=== PATIENT | female | born 1970 | race Caucasian/White ===

== ENCOUNTER → 2023-01-01 10:25 | Outpatient (CLI) | payer OTHER, SELFPAY ==
--- NOTE | ~2023-01-01 | MM_ITS ---
EXAMINATION: MM screening madeline BI w samy HISTORY: Screening mammogram TECHNIQUE: Craniocaudal and mediolateral oblique 3-D tomosynthesis images were obtained and synthetic 2-D images were generated. CAD analysis was submitted and interpreted. COMPARISON: 07/10/2019, 05/28/2018, 05/23/2017 bilateral screening mammogram examinations BREAST PARENCHYMAL COMPOSITION: There are scattered areas of fibroglandular density. FINDINGS: There is no evidence of suspicious mass, calcification, or architectural distortion to sugg est malignancy in either breast. There has been no suspicious interval change. IMPRESSION: 1. No mammographic evidence of malignancy. 2. Recommend routine screening mammography in one year. BI-RADS Category 1: Negative Reviewed, dictated and finalized at location A. OR OF DENTAL SURGERY
== END ==
PROVIDERS: PCP Obstetrics & Gynecology; Visit Provider Obstetrics & Gynecology
DX: Z12.31 Encounter for screening mammogram for malignant neoplasm of breast (principal)
CPT/HCPCS: 77063; 77067

== ENCOUNTER 2024-11-15 11:07 | Emergency (ER) | payer OTHER, SELFPAY ==
--- NOTE | 2024-11-15 11:14 | ED.URI ---
HPI - URI/Sore Throat General Chief Complaint: Upper Respiratory Infection Stated Complaint: Congestion/Sore Throat Time Seen by Provider: 11/15/24 11:34 Source: patient, RN notes reviewed and old records reviewed Mode of arrival: ambulatory Limitations: no limitations History of Present Illness HPI Narrative: 54-year-old female presents to the [facility] with 2 day history of cough, sore throat, left ear discomfort. Denies fevers. Reports she had a negative at home COVID test yesterday. Related Data Home Medications ?Medication ?Instructions ?Recorded ?Confirmed ?Last Taken ?Type cetirizine 10 mg tablet (Zyrtec) 10 mg PO DAILY PRN 07/03/22 08/13/24 Unknown History control BYMOUTH 10/20/22 08/13/24 Unknown History Allergies Allergy/AdvReac Type Severity Reaction Status Date / Time aspirin Allergy Unknown Unknown Verified 11/15/24 11:24 levocetirizine (From Xyzal) AdvReac Intermediate loss of Verified 11/15/24 11:24 balance ibuprofen AdvReac Mild Unknown Verified 11/15/24 11:24 Review of Systems Review of Systems: All systems reviewed & are unremarkable except as noted in HPI and below Constitutional: Constitutional: Reports no additional constitutional complaints ENT: Reports as per HPI, Reports otalgia and Reports sore throat Cardiovascular: Cardiovascular: Reports no additional cardiovascular complaints, Denies chest pain and Denies dyspnea Respiratory: Respiratory: Reports as per HPI, Denies chest congestion, Reports cough and Denies dyspnea Musculoskeletal: Musculoskeletal: Reports no additional musculoskeletal complaints Integumentary/Breasts: Skin/Breast: Reports system reviewed and no additional complaints, except as docu PMFSH Past Medical History Medical History Acute sinusitis Dermatographia Allergies Surgical History Surgical History Status post breast lumpectomy Family History Family History Father Heart disease Hypertension Sibling Thyroid disorder Social History Social History Smoking status: Never smoker Alcohol intake: current Substance use: never Living arrangements: with family Occupation/Education: occupation Additional occupation/education comments: Teacher Gender identity (if verbalized by the patient): Female Agree to blood products: Yes Comments At the time of my signature, I reviewed and agree with the nursing past medical, surgical, social, and family history. There is no relevant family history pertinent to the patient complaint. Exam Const: General: cooperative, healthy appearing, comfortable, no acute distress, well developed, alert and well nourished Nutritional Appearance: well nourished Orientation/consciousness: patient oriented x3 Limitations: no limitations HENMT: Head: normal to inspection Ears: hearing grossly normal bilaterally, external ears normal, EAC's normal, mastoids normal, no periauricular adenopathy and TM abnormal bulging on the left and erythematous on the left Face/Nose/Sinus: normal facial exam and face symmetric Face and sinus: normal facial exam and face symmetric Mouth: Yes Normal oral and palatal mucosa present, Yes lip normal, Yes tongue normal and Yes moist mucous membranes Throat: posterior oropharynx normal, uvula midline and no uvular edema Eyes: General: appearance normal, both eyes and all related structures Neck: Neck: normal visual inspection, full ROM, no lymphadenopathy and no meningeal signs Chest: Chest palpation & inspection: normal inspection of the chest Resp: Effort & Inspection: normal respiratory effort and able to speak in complete sentences Auscultation: clear to auscultation bilaterally, no crackles, no rales, no rhonchi and no wheezes Cardio: Rate: regular rate Skin: General skin exam: normal color and no rashes or lesions noted Neuro: General: patient oriented x3, gait normal, moves all extremities and no meningeal signs Cognition (Neuro): normal cognition Speech: normal speech Gait exam (Neuro): Normal gait present Extrem: General: normal to inspection, full ROM, capillary refill normal and normal gait Psych: Appearance: grossly normal and well kempt Mental Status: mental status grossly normal Speech and movement: Normal speech and movement present and Clear speech present Affect: normal affect Attitude: cooperative Course Course Level of Care: Express Care Visit Vital Signs Vital signs: Vital Signs Temperature 97.7 F 11/15/24 11:23 Pulse Rate 80 11/15/24 11:23 Respiratory Rate 18 11/15/24 11:23 Blood Pressure 108/68 11/15/24 11:23 Pulse Oximetry 99 11/15/24 11:23 Oxygen Delivery Room Air 11/15/24 11:23 Temperature 97.7 F 11/15/24 11:23 Pulse Rate 80 11/15/24 11:23 Respiratory Rate 18 11/15/24 11:23 Blood Pressure 108/68 11/15/24 11:23 Pulse Oximetry 99 11/15/24 11:23 Oxygen Delivery Room Air 11/15/24 11:23 Reviewed MDM - URI/Sore Throat MDM Narrative Medical decision making narrative: Patient sitting in exam. Nontoxic, vitals stable. Patient presents with left ear pain x2 days, cough and sore throat. Erythema noted T. Patient appropriate for outpatient treatment and follow-up left otitis media. Discharge instructions reviewed with patient, as well as provided in writing per nursing staff. The instructions also include specific and strict return/GO TO THE ER as well as f/u information. All questions have been answered, and the patient deny any further questions with discharge and discharge plan. Some parts of this dictation were generated by voice recognition software and may contain typographical and/or grammatical inaccuracies. Differential Diagnosis Differential diagnosis: Likely upper respiratory infection, otitis media, sinusitis, viral infection, bronchitis and influenza Lab Data Labs: Lab Results 11/15/24 Range/Units 11:36 POC Grp A Strep Screen Negative (Negative) Reviewed Critical Care Time Critical Care Time Critical Care Time: No Discharge Plan Discharge Clinical Impression: Acute left otitis media, PND (post-nasal drip) Sinusitis Qualifiers: Sinusitis location: unspecified location Chronicity: unspecified Qualified Code(s): J32.9 - Chronic sinusitis, unspecified Patient Disposition: Home, Self-Care Condition: Stable Instructions: Antibiotic Form, Sinusitis (ED), Ear Infection (AC) Additional Instructions: Take the antibiotic to help treat your ear infection. For your sinus congestion, it is important to treat your symptoms with items like Mucinex and Flonase. Your rapid strep swab was negative today at [facility]. A throat culture will be sent to the laboratory for further testing. If the test is positive, you will receive a phone call within 48 hours and an appropriate antibiotic will be initiated at that time. -- It is very important to treat your symptoms. Drink plenty of water, Gatorade, Pedialyte, ice pops or Jell-O. -Alternate Tylenol and Motrin per package directions for fever or pain. You can alternate every 4 hours -Antihistamine medication such Zyrtec/Claritin/Court during the day can help improve symptoms. -doing daily nasal irrigations can help relieve pressure your sinuses. Things like a Neti pot -Use Flonase twice a day for 5 days then daily to help reduce the inflammation and dry up your sinuses. -You can also use Mucinex. Be sure to drink plenty of water with this medication at least 8 ounces with every dose and it is important to drink 8 to 10 glasses of water per day. Water is a natural decongestant -Eat and drink things that are easy to swallow, like tea or soup, or popsicles. -Oral rinses such as: Salt water gargles and/or may use topical anesthetic (eg. Chloraseptic spray) or lozenges to relieve dryness or throat pain). -Frequent hand washing or hand chiller hand is one of the best ways to prevent spread of infection. -Using a vaporizer or humidifier at night will also help thin secretions and help with coughing up phlegm. -Follow up with primary care provider in 7-10 days if condition is not improving - For new or worsening symptoms go directly to the nearest ER Patient Language: Slovak Prescriptions: New amoxicillin 875 mg tablet 875 mg PO Q12H Qty: 20 0RF No Action control capsule BYMOUTH albuterol sulfate 90 mcg/actuation HFA aerosol inhaler 2 inh inhalation Q4H PRN (Reason: shortness of breath or wheezing) Qty: 8.5 0RF cetirizine [Zyrtec] 10 mg tablet 10 mg PO DAILY PRN Trintellix 10 mg tablet 15 mg PO DAILY Qty: 45 3RF Rx Instructions: 1 & 1/2 tablet once daily by mouth Follow-up/Referrals: Kaitlin Martínez APNDionisioC [Advanced Practice Nurse] - 1 Week (express care follow up, let ear infection) PHYSICIAN,DAIRY BAR MANAGER [Primary Care Provider] - Stand Alone Forms: Work/School Release IP Time of Disposition: 11:52
[2024-11-15 11:23] VITALS: BP 108/68; PULSE 80; RESP 18; TEMP 36.5; O2SAT 99
[2024-11-15 11:40] LABS: EDSTREPNEGPOS1 Negative (Negative)
--- OUTSIDE RECORDS SUMMARY | 2024-11-22 15:14 | XMS_ITS | Encounter Summary ---
Author Organization [facility] System Address [facility]. [place], [place] [address] [place] [address] Care Team Providers Care Sql Database Programmer Name Role Phone Unavailable Primary Care Provider Unavailabl e Encounter Details Date Type Department Care Team (Late st Contact Info) Description 07/16/2012 Abstract [facility] [address] [place] [address] Stuart Castillo, DPM [facility] [place] [address] Social History Tobacco Use Types Packs/Day Years Used Date Smoking Tobacco: Never Assessed Comments Unknown Sex and Gender Information Value Date Recorded Sex Assigned at Not on file Legal Sex Female 8:20 PM CDT Gender Identity Not on file Sexual Orientation Not on file documented as of this encounter Plan of Treatment Not on file documented as of this encounter Visit Diagnoses Diagnosis Pain in soft tissues of limb Pain in limb documented in this encounter
--- OUTSIDE RECORDS SUMMARY | 2024-11-22 15:14 | XMS_ITS | Encounter Summary ---
Author Organization [facility] Address [address] [place] [address]. [place] [address] [place] [address] Care Team Providers Care Front Maker Lockstitch Name Role Phone Unavailable Primary Care Provider Unavailabl e Encounter Details Date Type Department Care Team (Late st Contact Info) Description 01/27/2010 Abstract [facility] CONVERSION [address] [place] [address] Patrick Locke MD [facility] [place], [place] [id number] Social History Tobacco Use Types Packs/Day Years Used Date Smoking Tobacco: Never Assessed Comments Unknown Sex and Gender Information Value Date Recorded Sex Assigned at Not on file Legal Sex Female 8:20 PM CDT Gender Identity Not on file Sexual Orientation Not on file documented as of this encounter Plan of Treatment Not on file documented as of this encounter Visit Diagnoses Not on filedocumented in this encounter
--- OUTSIDE RECORDS SUMMARY | 2024-11-22 15:14 | XMS_ITS | Encounter Summary ---
Author Organization [facility] Address [facility]. [place], [place] [address] [place] [address] Care Team Providers Care Employment Services Director Name Role Phone Unavailable Primary Care Provider Unavailabl e Encounter Details Date Type Department Care Team (Late st Contact Info) Description 04/05/2019 Abstract [facility] [address] [place] [address] Marina Katz, [facility] [address] [place] [address] Social History Tobacco Use Types Packs/Day Years Used Date Smoking Tobacco: Never Assessed Comments Unknown Sex and Gender Information Value Date Recorded Sex Assigned at Not on file Legal Sex Female 8:20 PM CDT Gender Identity Not on file Sexual Orientation Not on file documented as of this encounter Plan of Treatment Not on file documented as of this encounter Visit Diagnoses Diagnosis Acute bronchitis documented in this encounter
--- OUTSIDE RECORDS SUMMARY | 2024-11-22 15:14 | XMS_ITS | Clinical Summary ---
Author Organization [facility] Address [address] [place] [address] Care Team Providers Care Condominium Association Manager Name Role Phone Unavailable Primary Care Provider Unavailabl e Source Comments [facility],non-owned Affiliates and Associated Physician Practices is amultiple site organization consisting of ambulatory clinics and hospital sitesin [place], [place], [place] and [place]. This disclosure is being madepursuant to the Care Everywhere program and may not contain all information available regarding this patient. Last updated 18.[facility] Allergies Active Allergy Reactions Criticality Noted Date Comments Aspirin Unknown 08/15/2019 As child Medications * Be aware that medications may not be up to date on this document. Alwaysverify current medications with the patient. Medication Sig Dispensed Refills Start Date End Date Status Vortioxetine HBr (TRINTELLIX PO) Active Cetirizine HCl (ZYRTEC PO) Active drospirenone-ethinyl estradiol (MALINDA) 3-0.02 MG tablet Take 1 tablet by mouth once daily Active fluticasone propionate (FLONASE) 50 MCG/ACT nasal sprayIndications:All ergic rhinitis, unspecified seasonality, unspecified trigger [place] 2 sprays into each nostril once daily 1 bottles 08/15/2019 Active meclizine (ANTIVERT) 25 MG tabletIndications:Di zziness Take 1 tablet by mouth 2 times daily as needed for Dizziness 6 tablet 08/15/2019 Active Social History Tobacco Use Types Packs/Day Years Used Date Smoking Tobacco: Never Smokeless Tobacco: Never Sex and Gender Information Value Date Recorded Sex Assigned at Not on file Gender Identity Not on file Sexual Orientation Not on file Last Filed Vital Signs Vital Sign Reading Time Taken Comments Blood Pressure 106/68 08/15/2019 2:36 PM CDT Pulse 60 08/15/2019 2:36 PM CDT Temperature 36.8 ??C (98.3 ??F) 08/15/2019 2:36 PM CD T Respiratory Rate 16 08/15/2019 2:36 PM CDT Oxygen Saturation 98% 08/15/2019 2:36 PM CDT Inhaled Oxygen Concentration - - Weight 88.5 kg (195 lb) 08/15/2019 2:36 PM CDT Height 172.7 cm (5' 8 ) 08/15/2019 2:36 PM CDT Body Mass Index 29.65 08/15/2019 2:36 PM CDT Plan of Treatment Health Maintenance Due Date Last Done Comments COLOGUARD (AGES 45-75) - COL ON CA SCREENING 1970 COLON MONITORING 1970 COLONOSCOPY - COLON CA SCREENING 1970 CT COLONOGRAPHY - COLON CA SCREENING 1970 Colorectal Cancer Screening 1970 FIT - COLON CA SCREENING 1970 FLEX SIG - COLON CA SCREENING 1970 LIPID TESTING 1970 MAMMOGRAM 1970 PAP SMEAR 1970 HIV SCREENING 1985 HEPATITIS C SCREENING 08/17/1988 DTAP/TDAP/TD VACCINES (1 - Tdap) 1989 HEPATITIS B VACCINE (1 of 3 - 19+ 3-dose series) 1989 SCREENING FOR DIABETES 08/15/2019 ZOSTER VACCINE (1 of 2) 2020 COVID-19 VACCINE (1 - 2023-2 5 season) 2024 INFLUENZA VACCINE (#1) 2024 DEPRESSION SCREENING 11/19/2024 HIB VACCINE Aged Out No longer eligi ble based on patient's age to complete this topic HPV VACCINE Aged Out No longer eligi ble based on patient's age to complete this topic MENINGOCOCCAL VACCINE Aged Out No marisela macario eligible based on patient's age to complete this topic PNEUMOCOCCAL VACCINE Aged Out No long er eligible based on patient's age to complete this topic
--- OUTSIDE RECORDS SUMMARY | 2024-11-22 15:14 | XMS_ITS | Encounter Summary ---
Author Organization [facility] Address [address] [place] [address] Care Team Providers Care Septic Technician Name Role Phone Unavailable Primary Care Provider Unavailabl e Reason for Visit * Reason Onset Date Comments Follow-up 08/17/2019 Encounter Details Date Type Department Care Team (Late st Contact Info) Description 08/17/2019 Telephone [facility] [address] [address] Provider, Katya Exp Bee Follow-up Social History Tobacco Use Types Packs/Day Years Used Date Smoking Tobacco: Never Smokeless Tobacco: Never Sex and Gender Information Value Date Recorded Sex Assigned at Not on file Gender Identity Not on file Sexual Orientation Not on file documented as of this encounter Miscellaneous Notes * Telephone Encounter - Snow Macias - 08/17/2019 2:28 PM CDT Courtesy follow-up phone call made to patient. Message left advising patient to call service [facility] [phone] if they have any questions or concerns. Snow Macias documented in this encounter Plan of Treatment Not on file documented as of this encounter Visit Diagnoses Not on filedocumented in this encounter
--- OUTSIDE RECORDS SUMMARY | 2024-11-22 15:14 | XMS_ITS | Encounter Summary ---
Author Organization [facility] Address [address] [place] [address]. [place], [place] [address] [place] [address] Care Team Providers Care Pci Security Consultant Name Role Phone Unavailable Primary Care Provider Unavailabl e Encounter Details Date Type Department Care Team (Late st Contact Info) Description 05/10/1995 Abstract [facility] CONVERSION [address] [place] [address] , Generic Conversion, Social History Tobacco Use Types Packs/Day Years [...]
--- OUTSIDE RECORDS SUMMARY | 2024-11-22 15:14 | XMS_ITS | Encounter Summary ---
Author Organization [facility] Address [facility]. [place], [place] [address] [place] [address] Care Team Providers Care Undercover Agent Name Role Phone Patrick Locke MD Primary Care Provider [phone] Encounter Details Date Type Department Care Team (Latest Contact Info) Description 03/30/2022 Travel Social History Tobacco Use Types Packs/Day Years Used Date Smoking Tobacco: Never Assessed Comments No Sex and Gender Information Value Date Recorded Sex Assigned at Not on file Legal Sex Female 8:20 PM CDT Gender Identity Not on file Sexual Orientation Not on file COVID-19 Exposure Response Date Recorded In the last 10 days, have yo u been in contact with someone who was confirmed or suspected to have Coronavirus/COVID-19? No / Unsure 03/30/2022 9:11 AM CDT documented as of this encounter Plan of Treatment Not on file documented as of this encounter Visit Diagnoses Not on filedocumented in this encounter Care Teams Undercover Agent Relationship Specialty Start Date End Date Patrick Locke MD [address] [place] [address] PCP - General INTERNAL MEDICINE 03/30/22 documented as of this encounter
--- OUTSIDE RECORDS SUMMARY | 2024-11-22 15:14 | XMS_ITS | Encounter Summary ---
Author Organization [facility] Address [address] [place] [address]. [place], [place] [address] [place] [address] Care Team Providers Care Gamma Ray Operator Name Role Phone Unavailable Primary Care Provider Unavailabl e Encounter Details Date Type Department Care Team (Late st Contact Info) Description 10/31/1998 Abstract [facility] CONVERSION [address] [place] [address] , Generic Conversion, Social History Tobacco Use [...]
--- OUTSIDE RECORDS SUMMARY | 2024-11-22 15:14 | XMS_ITS | Encounter Summary ---
Author Organization [facility] Address [address] [place] [address]. [place], [place] [address] [place] [address] Care Team Providers Care Respite Worker Name Role Phone Unavailable Primary Care Provider Unavailabl e Encounter Details Date Type Department Care Team (Late st Contact Info) Description 12/06/2001 Abstract [facility] CONVERSION [address] [place] [address] , Generic Conversion, Social History Tobacco Use [...]
--- OUTSIDE RECORDS SUMMARY | 2024-11-22 15:14 | XMS_ITS | Encounter Summary ---
Author Organization [facility] Address [address] [place] [address] Care Team Providers Care Department Administrator Name Role Phone Unavailable Primary Care Provider Unavailabl e Reason for Visit * Reason Comments Ear Problem Encounter Details Date Type Department Care Team (Late st Contact Info) Description 08/15/2019 2:40 PM CDT Office Visit [facility] AT [address] [phone] Provider, [facility] [place] Allergic rhinitis, unspecified seasonality, unspecified trigger (Primary Dx); Dizziness; Bilateral acute serous otitis media, recurrence not specified Social History Tobacco Use Types Packs/Day Years Used Date Smoking Tobacco: Never Smokeless Tobacco: Never Sex and Gender Information Value Date Recorded Sex Assigned at Not on file Gender Identity Not on file Sexual Orientation Not on file documented as of this encounter Last Filed Vital Signs Vital Sign Reading [...] Mass Index 29.65 08/15/2019 2:36 PM CDT documented in this encounter Patient Instructions * Patient Instructions* Chula Mujica APRN-COAT CHECKER - 08/15/2019 2:47 PM CDT Images from the original note were not included. Patient Education Eustachian Tube Dysfunction VETERINARY MEDICINE TEACHER: Eustachian tube dysfunction (ETD) is a condition that prevents your eustachian tubes from opening properly. It can also cause them to become blocked. Eustachian tubes connect your middle ear to the back of your nose and throat. These tubes open and allow air to flow in and out when you sneeze, swallow, or yawn. Common signs and symptoms include the following: ?? Fullness or pressure in your ears ?? Muffled hearing, or a feeling you are hearing under water or have clogged ears ?? Pain in one or both ears ?? Ringing in your ears ?? Popping, crackling, or clicking feeling in your ears ?? Trouble keeping your balance Call your doctor or partition making machine operator if: ?? Your symptoms do not improve or get worse. ?? You have a fever. ?? You have any hearing loss. ?? You have questions or concerns about your condition or care. Treatment: ETD may get better on its own without any treatment. If it continues, you may need any of the following: ?? Swallow, yawn, or chew gum to help open your eustachian tubes. Your healthcare provider may alsorecommend you blow with your mouth shut and your nostrils pinched closed. ?? Air pressure devices push air into your nose and eustachian tubes to help relieve air pressure in your ear. ?? Treatment for allergies such as decongestants, antihistamines, and nasal steroids may improve ETD. They may help decrease swelling of the eustachian tubes. ?? A myringotomy is surgery to make a hole in your eardrum. The hole relieves pressure and lets fluid drain from your ear. A pressure equalizing (PE) tube may be used to keep the hole open and to help drain fluid. ?? Tuboplasty is a procedure to widen your eustachian tubes. Follow up with your doctor or partition making machine operator as directed: Write down your questions so you remember to ask them during your visits. ?? Copyright [employer] 2019 Information is for End User's use only and may not be sold, redistributed or otherwise used for commercial purposes. All illustrations and images included in CareNotes?? are the copyrighted property of [employer]. or [employer] The above information is an educational therapist only. It is not intended as medical advice for individual conditions or treatments. Talk to your doctor, nurse or pharmacist before following any medical regimen to see if it is safe and effective for you. Patient Education Dizziness WHAT YOU NEED TO KNOW: What is dizziness? Dizziness is a feeling of being off balance or unsteady. Common causes of dizziness are an inner ear fluid imbalance or a lack of oxygen in your blood. Dizziness may be acute (lasts 3 days or less) or chronic (lasts longer than 3 days). You may have dizzy spells that last from seconds to a few hours. What increases my risk for dizziness? Dizziness may get worse during certain activities or when youmove a certain way. The following may also increase your risk for dizziness: ?? Older age ?? An infection, ear surgery, or an inner ear condition, such as M??ni??re disease ?? Stroke, a brain tumor, or a recent head trauma ?? An injury that causes a large amount of blood loss ?? Heart or blood pressure problems ?? Exposure to chemicals, or long-term alcohol use ?? Medicines used to treat high blood pressure, seizure disorders, or anxiety and depression ?? A nerve disorder, such as multiple sclerosis What signs and symptoms may happen with dizziness? ?? A feeling that your surroundings are moving even though you are standing still ?? Ringing in your ears or hearing loss ?? Feeling faint or lightheaded ?? Weakness or unsteadiness ?? Double vision or eye movements you cannot control ?? Nausea or vomiting ?? Confusion How is the cause of dizziness diagnosed? Your healthcare provider may ask when the dizziness started. Tell the provider if you have dizzy spells, and how long they last. Tell him or her what happens before you become dizzy. The provider will ask if you have other health conditions and if you take any medicines. He or she will check your blood pressure and pulse to see if your dizziness may be related to your heart. Your balance, strength, reflexes, and the way you walk may also be checked. You may need any of the following tests to help find the cause of your dizziness: ?? An EKG records the electrical activity of your heart. An EKG can be used to check for an abnormal heart beat or heart damage. ?? Blood tests will check your blood sugar level, infection, and your blood cell levels. ?? CT or MRI pictures check for a stroke, head injury, or brain tumor. They also check for brain bleeding or swelling. You may be given contrast liquid to help your brain show up better in the pictures. Tell the healthcare provider if you have ever had an allergic reaction to contrast liquid. Do not enter the MRI room with anything metal. Metal can cause serious injury. Tell the healthcare provide r if you have any metal in or on your body. How is dizziness treated? Treatment will depend on the cause of your dizziness. Your healthcare provider may give you oxygen or medicines to decrease your dizziness and nausea. He may also refer you to a specialist. You may need to be admitted to the hospital for treatment. How can I manage my symptoms? ?? Do not drive or operate heavy machinery when you are dizzy. ?? Get up slowly from sitting or lying down. ?? Drink plenty of liquids. Liquids help prevent dehydration. Ask how much liquid to drink each dayand which liquids are best for you. When should I seek immediate care? ?? You have a headache and a stiff neck. ?? You have shaking chills and a fever. ?? You vomit over and over with no relief. ?? Your vomit or bowel movements are red or black. ?? You have pain in your chest, back, or abdomen. ?? You have numbness, especially in your face, arms, or legs. ?? You have trouble moving your arms or legs. ?? You are confused. When should I contact my healthcare provider? ?? You have a fever. ?? Your symptoms do not get better with treatment. ?? You have questions or concerns about your condition or care. CARE AGREEMENT: You have the right to help plan your care. Learn about your health condition and how it may be treated. Discuss treatment options with your healthcare providers to decide what care you want to receive. You always have the right to refuse treatment. The above information is an educational therapist only. It is not intended as medical advice for individual conditions or treatments. Talk to your doctor, nurse or pharmacist before following any medical regimen to see if it is safe and effective for you. ?? Copyright [employer] 2019 Information is for End User's use only and may not be sold, redistributed or otherwise used for commercial purposes. All illustrations and images included in CareNotes?? are the copyrighted property of [employer]. or [employer] documented in this encounter Progress Notes * Chula Mujica APRN-CNP - 08/15/2019 2:39 PM CDT Subjective: Beatrice Mcmahan is a 48 year old female who presents for evaluation: Chief Complaint Patient presents with ??? Ear Problem Primary Care Physician is No primary care provider on file.. Symptoms include dizziness and post nasal drainage. Woke up with sinus pressure this am, and intermittent dizziness today also. Pt has been having post nasal drainage at night time for a couple weeks. No fever, no recent travel, and son have both had nausea and body aches. Onset of symptoms was 1 day ago, intermittent since that time. no fever. She is drinking plenty of fluids. Evaluation to date: none. Treatment to date: her normal daily zyrtec Allergies Allergen Reactions ??? Aspirin Unknown As child Outpatient Medications Marked as Taking for the 08/15/19 encounter (Office Visit) with Provider, Katya Hubbard Medication Sig ??? Cetirizine HCl (ZYRTEC PO) ??? drospirenone-ethinyl estradiol (MALINDA) 3-0.02 MG tablet Take 1 tablet by mouth once daily ??? fluticasone propionate (FLONASE) 50 MCG/ACT nasal spray Avella 2 sprays into each nostril once daily ??? meclizine (ANTIVERT) 25 MG tablet Take 1 tablet by mouth 2 times daily as needed for Dizziness ??? Vortioxetine HBr (TRINTELLIX PO) Past Medical History: Diagnosis Date ??? Narcolepsy There is no problem list on file for this patient. Past Surgical History: Procedure Laterality Date ??? Breast Lumpectomy Social History Socioeconomic History ??? Marital status: Spouse name: Not on file ??? Number of children: Not on file ??? Years of education: Not on file ??? Highest education level: Not on file Occupational History ??? Not on file Social Needs ??? Financial resource strain: Not on file ??? Food insecurity: Worry: Not on file Inability: Not on file ??? Transportation needs: Medical: Not on file Non-medical: Not on file Tobacco Use ??? Smoking status: Never Smoker ??? Smokeless tobacco: Never Used Substance and Sexual Activity ??? Alcohol use: Not on file ??? Drug use: Not on file ??? Sexual activity: Not on file Lifestyle ??? Physical activity: Days per week: Not on file Minutes per session: Not on file ??? Stress: Not on file Relationships ??? Social connections: Talks on phone: Not on file Gets together: Not on file Attends hoahaoism service: Not on file Active member of club or organization: Not on file Attends meetings of clubs or organizations: Not on file Relationship status: Not on file ??? Intimate partner violence: Fear of current or ex partner: Not on file Emotionally abused: Not on file Physically abused: Not on file Forced sexual activity: Not on file Other Topics Concern ??? Not on file Social History Narrative ??? Not on file Medications reviewed. Review of Systems Pertinent items are noted in HPI Constitutional: Negative for fevers, chills, sweats. Eyes: Negative Ears, nose, mouth, and throat: Positive for post nasal drainage Respiratory: Negative Cardiovascular: Negative Gastrointestinal: Negative Hematologic/lymphatic: Negative Musculoskeletal:Negative Neurological: Positive for intermittent dizziness Objective: BP 106/68 Pulse 60 Temp 98.3 ??F (36.8 ??C) Resp 16 Ht 1.727 m (5' 8 ) Wt 88.5 kg (195 lb) SpO2 98%BMI 29.65 kg/m2 Skin: Physical Exam Exam General appearance: alert, cooperative, no distress, oriented to person, place, and time, wellappearing Head: normocephalic, without trauma Eyes: sclera and conjunctiva clear, EOMI and PERRLA, lids normal Ears: canals clear, clear fluid noted behind tympanic membranes bilaterally, no erythema or bulgingnoted, hearing intact to voice Nose: nares open; no septal deviation is noted, nasal mucosa not inflamed, no maxillary, frontal orethmoid tenderness, Throat: no mucous membrane abnormalities, lips, mucosa, and tongue normal; teeth and gums normal, post nasal drainage visualized. Neck: range of motion is intact, Nodes: no cervical adenopathy, non tender to palpation Lungs: breath sounds normal and symmetric; no rales or wheezes Heart: regular rhythm, normal S1 and S2, without murmurs, gallops or rubs Neurologic: mental status normal; alert and oriented X 3 No results found for this or any previous visit (from the past 24 hour(s)). Assessment: . Encounter Diagnoses Name Primary? Allergic rhinitis, unspecified seasonality, unspecified trigger Yes ??? Dizziness ??? Bilateral acute serous otitis media, recurrence not specified Plan: Discussed dx and tx of URIs Discussed the importance of avoiding unnecessary abx therapy. Suggested symptomatic OTC remedies. RTC prn. In most cases, serous otitis resolves spontaneously without treatment. In a small percentage of cases, the effusion persists and requires additional intervention, such as pressure equalization tubes. In adults, seasonal allergies and/or an upper respiratory tract infection can induce eustachian tube dysfunction. As a result, some times decongestants, antihistamines, and/or nasal steroids may be beneficial. Your symptoms should resolve within approximately 12 weeks. However, if your symptoms persist greater than 12 weeks, or you begin to have additional symptoms such as: ear pain, fever, decreased hearing, and/or fluid draining from your ear seek medical attention as soon as possible. Discussed with pt that if dizziness worsens or persist, or any new symptoms arise go to ED and follow up with PCP pt states understanding. Orders Placed This Encounter ??? fluticasone propionate (FLONASE) 50 MCG/ACT nasal spray Sig: Avella 2 sprays into each nostril once daily Dispense: 1 bottles Refill: 0 ??? meclizine (ANTIVERT) 25 MG tablet Sig: Take 1 tablet by mouth 2 times daily as needed for Dizziness Dispense: 6 tablet Refill: 0 Continue to follow up with No primary care provider on file. as directed. After Visit Summary reviewed with patient. The patient indicates understanding of these issues and agrees with the plan. Patient discharged to Home .BRIDGETT Mendes 08/15/2019 2:56 PM documented in this encounter Plan of Treatment Not on file documented as of this encounter Visit Diagnoses Diagnosis Allergic rhinitis, unspecified seasonality, unspecified trigger- Primary Dizziness Dizziness and giddiness Bilateral acute serous otitis media, recurrence not specified documented in this encounter
--- OUTSIDE RECORDS SUMMARY | 2024-11-22 15:14 | XMS_ITS | Encounter Summary ---
Author Organization [facility] Address [address] [place] [address]. [place], [place] [id number] [place] [address] Care Team Providers Care Assistant Professor Of Biology Name Role Phone Unavailable Primary Care Provider Unavailabl e Encounter Details Date Type Department Care Team (Late st Contact Info) Description 12/22/2009 Abstract [facility] CONVERSION [address] [place] [address] William Hyde, VIDEO PRODUCTION ENGINEER [address] [place] [address] Social History Tobacco Use Types Packs/Day Years [...]
--- OUTSIDE RECORDS SUMMARY | 2024-11-22 15:14 | XMS_ITS | Encounter Summary ---
Author Organization [facility] Address [facility]ly [facility] [facility] [place] [address] [place] [address] Care Team Providers Care Dishwashing Machine Operator Name Role Phone Unavailable Primary Care Provider Unavailabl e Encounter Details Date Type Department Care Team (Late st Contact Info) Description 11/06/2012 Abstract [facility] [address] [place] [address] Patrick Locke MD [facility], [facility] [place], [place] [id number] Social History Tobacco Use Types Packs/Day Years Used Date Smoking Tobacco: Never Assessed Comments Unknown Sex and Gender Information Value Date Recorded Sex Assigned at Not on file Legal Sex Female 8:20 PM CDT Gender Identity Not on file Sexual Orientation Not on file documented as of this encounter Plan of Treatment Not on file documented as of this encounter Visit Diagnoses Diagnosis Other malaise and fatigue documented in this encounter
--- OUTSIDE RECORDS SUMMARY | 2024-11-22 15:14 | XMS_ITS | Encounter Summary ---
Author Organization [facility] Address Critical access hospital[facility] [place] [address] [place] [address] Care Team Providers Care Street Commissioner Name Role Phone Unavailable Primary Care Provider Unavailabl e Encounter Details Date Type Department Care Team (Late st Contact Info) Description 10/20/2013 Abstract [facility] [address] [place] [address] Andrzej Fontenot MD [facility] [place] [address] [place] [address] Social History Tobacco Use Types Packs/Day Years [...]
--- OUTSIDE RECORDS SUMMARY | 2024-11-22 15:14 | XMS_ITS | Encounter Summary ---
Author Organization [facility] Address [address] [place] [address]. [place], [place] [id number] [place] [address] Care Team Providers Care Microwave Technician Name Role Phone Unavailable Primary Care Provider Unavailabl e Encounter Details Date Type Department Care Team (Late st Contact Info) Description 05/24/1995 Abstract [facility] CONVERSION [address] [place] [address] , Generic Conversion, Social History Tobacco Use [...]
--- OUTSIDE RECORDS SUMMARY | 2024-11-22 15:14 | XMS_ITS | Encounter Summary ---
Author Organization [facility] Address [address] [place] [address]. [place], [place] [address] [place] [address] Care Team Providers Care Political Geographer Name Role Phone Unavailable Primary Care Provider Unavailabl e Encounter Details Date Type Department Care Team (Late st Contact Info) Description 05/11/1998 Abstract [facility] CONVERSION [address] [place] [address] , Generic Conversion, Social History Tobacco Use [...]
--- OUTSIDE RECORDS SUMMARY | 2024-11-22 15:14 | XMS_ITS | Encounter Summary ---
Author Organization [facility] Address [address] [place] [address]. [place], [place] [address] [place] [address] Care Team Providers Care Etcher Printed Circuit Boards Name Role Phone Unavailable Primary Care Provider Unavailabl e Encounter Details Date Type Department Care Team (Late st Contact Info) Description 02/07/1996 Abstract [facility] CONVERSION [address] [place] [address] , Generic Conversion, Social History Tobacco Use [...]
--- OUTSIDE RECORDS SUMMARY | 2024-11-22 15:14 | XMS_ITS | Encounter Summary ---
Author Organization [facility] Address [address] [place] [address]. [place], [place] [address] [place] [address] Care Team Providers Care Citizenship Instructor Name Role Phone Unavailable Primary Care Provider Unavailabl e Encounter Details Date Type Department Care Team (Late st Contact Info) Description 11/03/2008 Abstract [facility] CONVERSION [address] [place] [address] , Generic Conversion, Social History Tobacco Use [...]
--- OUTSIDE RECORDS SUMMARY | 2024-11-22 15:14 | XMS_ITS | Encounter Summary ---
Author Organization [facility] Address [facility] [place] [address] [place] [address] Care Team Providers Care Account Installation Specialist Name Role Phone Patrick Locke MD Primary Care Provider [phone] Reason for Referral * Imaging (Emergency) - Closed Specialty Diagnoses / Procedures Referred By Callie roland Referred To Contact RADIOLOGY Procedures CT LUMB SPINE WO CON Jewels Perrin FNP [address] [address] Phone: tel: fax: Referral ID Status Reason Start Date Expiration Date Visits Re quested Visits Authorized [id number] Closed 03/30/2022 04/30/2023 1 1 Reason for Visit * Reason Comments Back Pain Encounter Details Date Type Department Care Team (Late st Contact Info) Description 03/30/2022 9:15 AM CDT - 03/30/2022 12:15 PM CDT Emergency [facility] Emergency Room [id number] [place] [address] [phone] Jewels Perrin FNP [address] [id number] Back Pain Discharge Disposition: Home or Self Care (Routine Discharge) Social History Tobacco Use Types Packs/Day Years [...] AM CDT documented as of this encounter Last Filed Vital Signs Vital Sign Reading Time Taken Comments Blood Pressure 109/76 03/30/2022 12:00 PM CDT Pulse 73 03/30/2022 12:01 PM CDT Temperature 36.3 ??C (97.3 ??F) 03/30/2022 9:24 AM CD T Respiratory Rate 16 03/30/2022 11:03 AM CDT Oxygen Saturation 100% 03/30/2022 12:01 PM CDT Inhaled Oxygen Concentration - - Weight 100 kg (220 lb 7.4 oz) 03/30/2022 9:24 AM CDT Height 172.7 cm (5' 8 ) 03/30/2022 9:24 AM CDT Body Mass Index 33.52 03/30/2022 9:24 AM CDT documented in this encounter Discharge Instructions * Discharge Instructions* Jewels Perrin, LAMAR - 03/30/2022 11:55 AM CDT Please follow-up with Dr. Locke, I would recommend doing gentle stretches of your lower back everyday. You may sit in a warm Epson salt bath, continue to follow-up with your chiropractor or a massage therapist. Thank you for giving us the opportunity to care for you today. If at any point you are becoming more ill, please call your doctor, or go to the ER. You are always welcome back. If you have any questions about this visit, concerns about your symptoms, questions about your medications or other concerns, please give us a call. Our practice is committed to providing you the very best in healthcare. We want to hear from you! Please fill out the survey you get from us. Your feedback is anonymous and helps us improve the patient experience for you and others in the community we serve. - Jewels Schmees, HISTORIC SITE ADMINISTRATOR- - Emergency Medicine Provider * Attachments The following attachments cannot be sent through Care Everywhere. * Radiculopathy Discharge Instructions (Taiwanese) documented in this encounter Medications at Time of Discharge diazePAM 5 MG tabletIndications:L umbar radiculopathy Take 1 tablet (5 mg total) by mouth every 8 (eight) hours as needed for Muscle Spasms. 10 tablet 03/30/2022 methocarbamol (ROBAXIN-750) 750 MG Tab Take 1 tablet (750 mg total) by mouth 4 (four) times daily as needed. 40 tablet 03/30/2022 lidocaine 5 % Place 1 patch onto the skin daily for 30 days. Remove & Discard patch within 12 hours or as directed by 30 patch 03/30/2022 2 documented as of this encounter ED Notes * LAMAR Warren - 03/30/2022 11:07 AM CDT Images from the original note were not included. Chief Complaint Chief Complaint Patient presents with ??? Back Pain History of Present Illness 51-year-old female presents for evaluation of back pain. She states last week she was moving some books, twisted and felt a grabbing in her right lower back. She was unable to move at that time and was taken directly from work to the chiropractic office. She had x-rays and has had 2 adjustments since then with worsening pain, she presents wearing 2 different back braces and is unable to sit due to the pain. No recent sick or cold-like symptoms, no recent fevers. Has never used IV drugs. She denies saddle paresthesia or incontinence of bladder or bowel. She does take a control pill due to heavy menstrual cycles. Endorses some bilateral great toe numbness/tingling Medical History ALLERGIES: Allergies Allergen Reactions ??? Aspirin Unknown Reports allergy, unknown reaction from when she was a child ??? Nsaids Unknown Reports allergy, unknown reaction from when she was a child MEDICATIONS: Prior to Admission medications Medication Sig Start Date End Date Taking? Authorizing Provider diazePAM 5 MG tablet Take 1 tablet (5 mg total) by mouth every 8 (eight) hours as needed for MuscleSpasms. 03/30/22 Yes LAMAR Warren lidocaine 5 % Place 1 patch onto the skin daily for 30 days. Remove & Discard patch within 12 hours or as directed by 03/30/22 04/29/22 Yes LAMAR Warren methocarbamol (ROBAXIN-750) 750 MG Tab Take 1 tablet (750 mg total) by mouth 4 (four) times daily as needed. 03/30/22 Yes LAMAR Warren PAST MEDICAL HISTORY: No past medical history on file. PAST SURGICAL HISTORY: No past surgical history on file. FAMILY HISTORY: No family history on file. SOCIAL HISTORY: Social History Tobacco Use ??? Smoking status: Not on file Substance Use Topics ??? Alcohol use: Not on file ??? Drug use: Not on file Review of Systems Review of Systems Constitutional: Negative for chills and fever. HENT: Negative for congestion, sinus pain and sore throat. Eyes: Negative for pain and redness. Respiratory: Negative for cough, chest tightness, shortness of breath and wheezing. Cardiovascular: Negative for chest pain. Gastrointestinal: Negative for abdominal pain, constipation, diarrhea, nausea and vomiting. Musculoskeletal: Positive for back pain. Negative for arthralgias and joint swelling. Skin: Negative for rash and wound. Neurological: Negative for headaches. Psychiatric/Behavioral: Negative for agitation. The patient is not nervous/anxious. Physical Exam Filed Vitals: 03/30/22 1130 03/30/22 1146 03/30/22 1200 03/30/22 1201 BP: 104/72 109/76 Pulse: 73 Resp: Temp: TempSrc: SpO2: 100% 100% 96% 100% Weight: Height: Physical Exam Vitals and nursing note reviewed. Constitutional: Appearance: She is well-developed. HENT: Head: Normocephalic. Eyes: Pupils: Pupils are equal, round, and reactive to light. Cardiovascular: Rate and Rhythm: Normal rate and regular rhythm. Pulmonary: Effort: Pulmonary effort is normal. Breath sounds: Normal breath sounds. Musculoskeletal: Lumbar back: Spasms present. No swelling, deformity or bony tenderness. Decreased range of motion. Back: Skin: General: Skin is warm and dry. Neurological: General: No focal deficit present. Mental Status: She is alert and oriented to person, place, and time. Diagnostic Studies / Procedures ELECTROCARDIOGRAMS: No results found for this visit on 03/30/22. LABORATORY STUDIES: Results for orders placed or performed during the hospital encounter of 03/30/22 URINALYSIS, AUTO, COMPLETE Result Value Ref Range COLOR (U) YELLOW TRANSPARENCY HAZY Specific [place] (U) 1.025 1.000 - 1.030 U PH 6.0 5.0 - 9.0 LEUKOCYTE ESTERASE TRACE (A) NEGATIVE NITRITES NEGATIVE NEGATIVE PROTEIN (U) NEGATIVE NEGATIVE URINE GLUCOSE NEGATIVE NEGATIVE U KETONES NEGATIVE NEGATIVE BILIRUBIN (U) NEGATIVE NEGATIVE BLOOD 2+ (A) NEGATIVE WBC/HPF 5-10 0 - 5 /HPF RBC/HPF 10-25 0 - 5 /HPF EPI/HPF FEW /HPF CULTURE & SENSITIVITY INDICATED? SPECIMEN SETUP FOR CULTURE IMAGING STUDIES: CT LUMB SPINE WO CON Final Result by User, [id number] (03/30 1112) IMAGING STUDIES: CT LUMB SPINE WO CON DATE: 03/30/2022 10:26 AM CLINICAL HISTORY: pain lower right back/upper gluteus, no direct trauma, pain worsening despite chiropractice management Lumbar radiculopathy, no red flags . . Radiation dose reduction technique was utilized. COMPARISON: Correlation with plain films of 01/31/2014. IMPRESSION: 1. L1-L5 without acute fracture or dislocation. No paraspinal lesions. Rudimentary ribs at T12. Partially sacralized L5 segment. 2. Multilevel endplate and facet joint degenerative change. No spondylolisthesis. No pars defect. Partially calcified disc space at L3-4. 3. Possible small right paracentral disc bulge at L1-2 without gross spinal stenosis. 4. Mild disc bulge with ligament of flavum hypertrophy and facet joint degenerative change at L3-4. Possible mild spinal stenosis. 5. Possible broad-based central to right paracentral disc herniation at L4-5. Possible mild spinal stenosis.. 6. . Atherosclerotic aorta. Mild degenerative change in both sacroiliac joints. 7. If radicular symptoms persist, follow-up with MRI. Ordered By: JEWELS PERRIN Interpreted By: Manuel Aguilar, 03/30/2022 11:02 AM MEDICATIONS: Medications lidocaine 4 % patch 1 patch (1 patch Transdermal Patch Applied 03/30/22 0939) methocarbamol (ROBAXIN) tablet 750 mg (750 mg Oral Given 03/30/22 09) HYDROcodone-acetaminophen (NORCO) 5-325 MG tablet 1 tablet (1 tablet Oral Given 03/30/22 0938) diazePAM (VALIUM) tablet 5 mg (5 mg Oral Given 03/30/22 1126) Discharge Medication List as of 03/30/2022 12:04 PM START taking these medications Details diazePAM 5 MG tablet Take 1 tablet (5 mg total) by mouth every 8 (eight) hours as needed for MuscleSpasms., Starting [facility] 03/30/2022, Eprescribe Class: Eprescribe Pharmacy: [facility] [address] [place], [place] [address] [place] [address] (Ph #: [phone]) lidocaine 5 % Place 1 patch onto the skin daily for 30 days. Remove & Discard patch within 12 hours or as directed by MD, Starting [facility] 03/30/2022, Until 04/29/2022, Eprescribe Class: Eprescribe Pharmacy: [facility] [address] [place], [place] [address] [place] [address] (Ph #: [phone]) methocarbamol (ROBAXIN-750) 750 MG Tab Take 1 tablet (750 mg total) by mouth 4 (four) times daily as needed., Starting [facility] 03/30/2022, Eprescribe Class: Eprescribe Pharmacy: [facility] [address] [place], [place] [address] [place] [address] (Ph #: [phone]) ED Course / Medical Decision Making MDM Number of Diagnoses or Management Options Lumbar radiculopathy Diagnosis management comments: I reviewed urinalysis with patient, there are some red blood cells, I have low suspicion for kidney stone as patient does not present as typical renal colic and flank pain, offered patient further evaluation into hematuria, she does not believe the source for her painis a kidney stone as pain started after a twist type injury and is worse with movement, I felt thatthis was reasonable as well. Reviewed findings of degenerative disc disease and bulge on CT scan, she did receive some relief with treatment while in the emergency room and can now sit, she is not actively crying or tearful any longer. She feels comfortable discharge home and expressed understanding to follow-up recommendations. We expressed concerning signs of back pain including urinary retention, incontinence of bladder or bowel and saddle paresthesia, of which she reiterates she does not have any, she expressed understanding to return with the symptoms. Nontoxic exit exam, 100% on room air this is normal Amount and/or Complexity of Data Reviewed Clinical lab tests: reviewed and ordered Tests in the radiology section of CPT??: ordered and reviewed Tests in the medicine section of CPT??: ordered and reviewed Patient Progress Patient progress: stable Clinical Impression Lumbar radiculopathy (Primary) Disposition: Discharge NOTE: I dictated portions of this note using [employer]imici speech recognition software. Occasional wrong word or sound-alike substitutions may have occurred due to the inherent limitations of voice recognition software. LAMAR WARREN 03/30/2022 LAMAR Warren 03/30/22 1240 Cosigned by Amandeep Demarco MD,PHD at 03/31/2022 10:06 AM CDT * Sly Dutta RN - 03/30/2022 9:47 AM CDT Patient tells me she is unable to sit to provide urine at this time. Medication has been provided and will have her give sample after pain has eased. * Sly Dutta RN - 03/30/2022 9:16 AM CDT Patient presents for evaluation due to pain in the right lower back. Pain began last Sunday after moving around while at work. States she was putting books in a closet then turned and began havingpain. Patient has seen chiropractor after the injury and states pain has been manageable until yesterday. Pain became severe, no new injury is reported, and she is unable to sit or lay down without worsening pain. She prefers to remain standing at this time and is very restless with continuous slowwalking movements. She reports that this is not much relief and does occasionally have a jolt of pain when she walks. Pain is located to the right lower back but does not radiate although she tellsme that she has intermittent numbness in her toes. She does not report other complaints. Patient isawake, alert, and oriented x 4 at this time. She is ambulatory with slow walking. Patient is currently wearing two back braces. She has been taking tylenol with last dose at 0130. I took 3, they were regular. documented in this encounter Plan of Treatment Not on file documented as of this encounter Procedures Procedure Name Priority Date/Time Associated Diagnosis Comments URINE BACTERIA CULTURE Routine 03/30/2022 10:55 AM CDT URINALYSIS, AUTO, COMPLETE STAT 03/30/2022 10:[address] LUMB SPINE WO CON STAT 03/30/2022 10:40 AM CDT documented in this encounter Results * CULTURE URINE (03/30/2022 10:55 AM CDT) SPEC DESCRIPTION URINE CLEAN CATCH 03/30/2022 11:07 AM CDT [facility] SPECIAL REQUESTS NO SPECIAL REQUEST 03/30/2022 11:07 AM CDT [facility] CULTURE RESULT POLYMICROBIAL GROWTH CONSISTENT WITH NORMAL GENITAL DIEGO. ?? SUSCEPTIBILITIES NOT ROUTINELY PERFORMED. 03/31/2022 9:47 AM CDT [facility] URINE SPECIMEN OBTAINED BY CLEAN CATCH PROCEDURE / Unknown 03/30/2022 10:55 AM CDT 03/30/2022 11:07 AM CDT Jewels Perrin HISTORIC SITE ADMINISTRATOR MICROBIOLOGY - GENERAL JOANNE COMBS Final Result [facility] [address] [place] [address], [place] [phone] [facility] [address] [facility] [place] [address], [place] [phone] * (ABNORMAL) URINALYSIS, AUTO, COMPLETE (03/30/2022 10:55 AM CDT) COLOR (U) YELLOW 03/30/2022 11:06 AM CDT [facility] TRANSPARENCY HAZY 03/30/2022 11:06 AM CDT [facility] SPECIFIC GRAVITY (U) 1.025 1.000 - 1.030 03/30/2022 11:06 AM T [facility] U PH 6.0 5.0 - 9.0 03/30/2022 11:06 AM T [facility] LEUKOCYTES (U) TRACE(A) NEGATIVE 03/30/2022 11:06 AM CDT [facility] NITRITES NEGATIVE NEGATIVE 03/30/2022 11:06 AM CDT [facility] PROTEIN (U) NEGATIVE NEGATIVE 03/30/2022 11:06 AM T [facility] URINE GLUCOSE NEGATIVE NEGATIVE 03/30/2022 11:06 AM CDT [facility] KETONES MG/DL (U) NEGATIVE NEGATIVE 03/30/2022 11:06 AM T [facility] BILIRUBIN (U) NEGATIVE NEGATIVE 03/30/2022 11:06 AM T [facility] BLOOD (U) 2+(A) NEGATIVE 03/30/2022 11:06 AM CDT [facility] WBC/HPF 5-10 0 - 5 /HPF 03/30/2022 11:06 AM CDT [facility] RBC/HPF 10-25 0 - 5 /HPF 03/30/2022 11:06 AM CDT [facility] EPI/HPF FEW /HPF 03/30/2022 11:06 AM CDT [facility] CULTURE & SENSITIVITY INDICATED? SPECIMEN SETUP FOR CULTURE 03/30/2022 11:06 AM CDT [facility] URINE SPECIMEN OBTAINED BY CLEAN CATCH PROCEDURE / Unknown 03/30/2022 10:55 AM CDT us Jewels Perrin HISTORIC SITE ADMINISTRATOR URINE ORDERABLES Final Resu lt Performing Organization Address City/State/[facility] Co de Phone Number [facility] [address] [place] [address], * CT LUMB SPINE WO CON (03/30/2022 10:40 AM CDT) Anatomical Region Laterality Modality Spine Computed Tomogra phy 03/30/2022 11:0 2 AM CDT Impressions 03/30/2022 11:09 AM CDT IMPRESSION: 1. ??L1-L5 without acute fracture or dislocation. No paraspinal lesions. Rudimentary ribs at T12. Partially sacralized L5 segment. 2. ??Multilevel endplate and facet joint degenerative change. No spondylolisthesis. No pars defect. Partially calcified disc space at L3-4. 3. ??Possible small right paracentral disc bulge at L1-2 without gross spinal stenosis. 4. ??Mild disc bulge with ligament of flavum hypertrophy and facet joint degenerative change at L3-4. Possible mild spinal stenosis. 5. ??Possible broad-based central to right paracentral disc herniation at L4-5. Possible mild spinal stenosis.. 6. ??. Atherosclerotic aorta. Mild degenerative change in both sacroiliac joints. 7. ??If radicular symptoms persist, follow-up with MRI. Ordered By: JEWELS PERRIN Interpreted By: Manuel Aguilar, 03/30/2022 11:02 AM Narrative 03/30/2022 11:09 AM CDT IMAGING STUDIES: CT LUMB SPINE WO CON ? DATE: 03/30/2022 10:26 AM CLINICAL HISTORY: pain lower right back/upper gluteus, no direct trauma, pain worsening despite chiropractice management Lumbar radiculopathy, no red flags ?? . . Radiation dose reduction technique was utilized. COMPARISON: Correlation with plain films of 01/31/2014. Procedure Note Brice Aguilar MD - 03/30/2022 IMAGING STUDIES: CT LUMB SPINE WO CON DATE: 03/30/2022 10:26 AM CLINICAL HISTORY: pain lower right back/upper gluteus, no direct trauma,pain worsening despite chiropractice management Lumbar radiculopathy, no red flags . . Radiation dose reductiontechnique was utilized. COMPARISON: Correlation with plain films of 01/31/2014. IMPRESSION: 1. L1-L5 without acute fracture or dislocation. No paraspinal lesions.Rudimentary ribs at T12. Partially sacralized L5 segment. 2. Multilevel endplate and facet joint degenerative change. Nospondylolisthesis. No pars defect. Partially calcified disc space atL3-4. 3. Possible small right paracentral disc bulge at L1-2 without grossspinal stenosis. 4. Mild disc bulge with ligament of flavum hypertrophy and facet jointdegenerative change at L3-4. Possible mild spinal stenosis. 5. Possible broad-based central to right paracentral disc herniation atL4-5. Possible mild spinal stenosis.. 6. . Atherosclerotic aorta. Mild degenerative change in both sacroiliacjoints. 7. If radicular symptoms persist, follow-up with MRI. Ordered By: JEWELS PERRIN Interpreted By: Manuel Aguilar, 03/30/2022 11:02 AM us Jewels Perrin HISTORIC SITE ADMINISTRATOR CT Final Resul t documented in this encounter Visit Diagnoses Diagnosis Lumbar radiculopathy- Primary Thoracic or lumbosacral neuritis or radiculitis, unspecified documented in this encounter Administered Medications Inactive Administered Medications - up to 3 most recent administrations Medication Order MAR Action Action Date Dose Rate Site diazePAM (VALIUM) tablet 5 mg 5 mg, Oral, Once, 1 dose, On Flor 03/30/22 at 1130 Given 03/30/2022 11:26 AM CDT 5 mg HYDROcodone-acetaminophen (NORCO) 5-325 MG tablet 1 tablet 1 tablet, Oral, Once, 1 dose, On Flor 03/30/22 at 0930, Maximum dose of acetaminophen is 4000 mg from all sources in 24 hours. Given 03/30/2022 9:38 AM CDT 1 tablet lidocaine 4 % patch 1 patch 1 patch, Transdermal, Administer over 12 Hours, Once, 1 dose, On Flor 03/30/22 at 0930 Patch Applied 03/30/2022 9:39 AM CDT 1 patch Back methocarbamol (ROBAXIN) tablet 750 mg 750 mg, Oral, Once, 1 dose, On Flor 03/30/22 at 0930 Given 03/30/2022 9:38 AM CDT 750 mg documented in this encounter Active and Recently Administered Medications Times are shown in CDT. Scheduled Medication Order 03/28/2022 03/29/2022 03/30/2022 diazePAM (VALIUM) tablet 5 mg (COMPLETED) 5 mg, Oral, Once, 1 dose, On Flor 03/30/22 at 1130 1126 (Given - Provid er: Sejal Trivedi RN) HYDROcodone-acetaminophen (NORCO) 5-325 MG tablet 1 tablet (COMPLETED) 1 tablet, Oral, Once, 1 dose, On Flor 03/30/22 at 0930, Maximum dose of acetaminophen is 4000 mg from all sources in 24 hours. 0938 (Given - Provid er: Sly Dutta RN) lidocaine 4 % patch 1 patch 1 patch, Transdermal, Administer over 12 Hours, Once, 1 dose, On Flor 03/30/22 at 0930 0939 (Patch Applied - Provider: Sly Dutta RN - Comment: Right lower back)1215 (Due: Patch Removed - Provider: Automatic Discharge Provider - Comment: Time automatically adjusted from order being discontinued) methocarbamol (ROBAXIN) tablet 750 mg (COMPLETED) 750 mg, Oral, Once, 1 dose, On Flor 03/30/22 at 0930 0938 (Given - Provid er: Sly Dutta RN) documented in this encounter Care Teams Account Installation Specialist Relationship Specialty Start Date End Date Patrick Locke MD [address] [place] [address] [phone] PCP - General INTERNAL MEDICINE 03/30/22 documented as of this encounter
--- OUTSIDE RECORDS SUMMARY | 2024-11-22 15:14 | XMS_ITS | Encounter Summary ---
Author Organization [facility] Address [address] [place] [address]. [place], [place] [id number] [place] [address] Care Team Providers Care Process Description Writer Name Role Phone Unavailable Primary Care Provider Unavailabl e Encounter Details Date Type Department Care Team (Late st Contact Info) Description 09/08/2010 Abstract [facility] [address] [place] [address] William Hyde, OFFSET PRESS OPERATOR [address] [place] [address] Social History Tobacco Use Types Packs/Day Years [...]
--- OUTSIDE RECORDS SUMMARY | 2024-11-22 15:14 | XMS_ITS | Encounter Summary ---
Author Organization [facility] Address [address] [place] [address]. [place], [place] [address] [place] [address] Care Team Providers Care Municipal Court Judge Name Role Phone Unavailable Primary Care Provider Unavailabl e Encounter Details Date Type Department Care Team (Late st Contact Info) Description 06/12/2003 Abstract [facility] CONVERSION [address] [place] [address] , Generic Conversion, Social History Tobacco Use [...]
--- OUTSIDE RECORDS SUMMARY | 2024-11-22 15:14 | XMS_ITS | Encounter Summary ---
Author Organization [facility] Address [address] [place] [address]. [place], [place] [address] [place] [address] Care Team Providers Care Veneer Glue Jointer Feedback Name Role Phone Unavailable Primary Care Provider Unavailabl e Encounter Details Date Type Department Care Team (Late st Contact Info) Description 12/14/2009 Abstract [facility] CONVERSION [address] [place] [address] , Generic Conversion, Social History Tobacco Use [...]
--- OUTSIDE RECORDS SUMMARY | 2024-11-22 15:14 | XMS_ITS | Encounter Summary ---
Author Organization [facility] Address [facility] [place], [place] [address] [place] [address] Care Team Providers Care Shoe Cementer Name Role Phone Unavailable Primary Care Provider Unavailabl e Encounter Details Date Type Department Care Team (Late st Contact Info) Description 07/17/[address] [facility] [address] [place] [address] Stuart Castillo, DPM [facility] [place] [address] Social History Tobacco Use Types Packs/Day Years [...]
--- OUTSIDE RECORDS SUMMARY | 2024-11-22 15:14 | XMS_ITS | Encounter Summary ---
Author Organization [facility] Address [address] [place] [address]. [id number] [place] [address] Care Team Providers Care Custom Protection Officer Name Role Phone Unavailable Primary Care Provider Unavailabl e Encounter Details Date Type Department Care Team (Late st Contact Info) Description 12/27/2001 Abstract [facility] CONVERSION [address] [place] [address] , Generic Conversion, Social History Tobacco Use [...]
--- OUTSIDE RECORDS SUMMARY | 2024-11-22 15:14 | XMS_ITS | Encounter Summary ---
Author Organization [facility] Address [facility]. [place], [place] [address] [place] [address] Care Team Providers Care Mannequin Molder Name Role Phone Unavailable Primary Care Provider Unavailabl e Encounter Details Date Type Department Care Team (Late st Contact Info) Description 01/31/2014 Abstract [facility] [address] [place] [address] Dea Chamberlain, FEED MANAGEMENT ADVISOR [address] [place] [address] Social History Tobacco Use Types Packs/Day Years Used Date Smoking Tobacco: Never Assessed Comments Unknown Sex and Gender Information Value Date Recorded Sex Assigned at Not on file Legal Sex Female 8:20 PM CDT Gender Identity Not on file Sexual Orientation Not on file documented as of this encounter Plan of Treatment Not on file documented as of this encounter Visit Diagnoses Diagnosis Low back pain Lumbago documented in this encounter
--- OUTSIDE RECORDS SUMMARY | 2024-11-22 15:14 | XMS_ITS | Encounter Summary ---
Author Organization [facility] Address [address] [place] [address]. [place] [address] [place] [address] Care Team Providers Care Solar Site Assessment Specialist Name Role Phone Unavailable Primary Care Provider Unavailabl e Encounter Details Date Type Department Care Team (Late st Contact Info) Description 12/24/2009 Abstract [facility] CONVERSION [address] [place] [address] William yHde, PHOTOGRAPHIC PLATE MAKER [address] [place] [address] Social History Tobacco Use Types Packs/Day Years [...]
--- OUTSIDE RECORDS SUMMARY | 2024-11-22 15:14 | XMS_ITS | Encounter Summary ---
Author Organization [facility] Address [address] [place] [address]. [place], [place] [address] [place] [address] Care Team Providers Care Arcade Games Mechanic Name Role Phone Unavailable Primary Care Provider Unavailabl e Encounter Details Date Type Department Care Team (Late st Contact Info) Description 09/19/1999 Abstract [facility] CONVERSION [address] [place] [address] , Generic Conversion, Social History Tobacco Use [...]
--- OUTSIDE RECORDS SUMMARY | 2024-11-22 15:14 | XMS_ITS | Referral Summary ---
Author Organization [facility] [employer] Address [address] [place] [address] Care Team Providers Care Junior High Math Teacher Name Role Phone Unavailable Primary Care Provider Unavailabl e Source Comments [facility],non-owned Affiliates and Associated Physician Practices is amultiple site organization consisting of ambulatory clinics and hospital sitesin [place], [place], [place] and [place]. This disclosure is being madepursuant to the Care Everywhere program and may not contain all information available regarding this patient. Last updated 18.[facility] [employer] Allergies Active Allergy Reactions Criticality Noted Date [...] sprayIndications:All ergic rhinitis, unspecified seasonality, unspecified trigger [place] 2 sprays into each nostril once daily [...] 08/15/2019 2:36 PM CDT Plan of Treatment Not on file
--- OUTSIDE RECORDS SUMMARY | 2024-11-22 15:14 | XMS_ITS | Encounter Summary ---
Author Organization [facility] Address [address] [place] [address]. [place], [place] [address] [place] [address] Care Team Providers Care Service Center Technician Name Role Phone Unavailable Primary Care Provider Unavailabl e Encounter Details Date Type Department Care Team (Late st Contact Info) Description 02/14/1996 Abstract [facility] CONVERSION [address] [place] [address] , Generic Conversion, Social History Tobacco Use [...]
--- OUTSIDE RECORDS SUMMARY | 2024-11-22 15:14 | XMS_ITS | Encounter Summary ---
Author Organization [facility] Address [address] [place] [address]. [place] [address] [place] [address] Care Team Providers Care Molder Shoulder Pad Name Role Phone Unavailable Primary Care Provider Unavailabl e Encounter Details Date Type Department Care Team (Late st Contact Info) Description 01/05/2010 Abstract [facility] CONVERSION [address] [place] [address] William Hyde, HAND STAMPER [address] [place] [address] Social History Tobacco Use Types Packs/Day Years [...]
--- OUTSIDE RECORDS SUMMARY | 2024-11-22 15:14 | XMS_ITS | Encounter Summary ---
Author Organization [facility] Address [address] [place] [address]. [place] [address] [place] [address] Care Team Providers Care Drier And Evaporator Operator Name Role Phone Unavailable Primary Care Provider Unavailabl e Encounter Details Date Type Department Care Team (Late st Contact Info) Description 09/24/2007 Abstract [facility] CONVERSION [address] [place] [address] Patrick Locke MD [facility] [place] [address] Social History Tobacco Use Types Packs/Day Years [...]
--- OUTSIDE RECORDS SUMMARY | 2024-11-22 15:14 | XMS_ITS | Encounter Summary ---
Author Organization [facility] Address [address] [place] [address]. [place], [place] [address] [place] [address] Care Team Providers Care Solid Tire Tuber Machine Operator Name Role Phone Unavailable Primary Care Provider Unavailabl e Encounter Details Date Type Department Care Team (Late st Contact Info) Description 08/24/2009 Abstract [facility] CONVERSION [address] [place] [address] , Generic Conversion, Social History Tobacco Use [...]
--- OUTSIDE RECORDS SUMMARY | 2024-11-22 15:14 | XMS_ITS | Encounter Summary ---
Author Organization [facility] Address [address] [place] [address]. [place], [place] [address] [place] [address] Care Team Providers Care Nurse Practitioner Physician Assistant Name Role Phone Unavailable Primary Care Provider Unavailabl e Encounter Details Date Type Department Care Team (Late st Contact Info) Description 12/07/2001 Abstract [facility] CONVERSION [address] [place] [address] , Generic Conversion, Social History Tobacco Use [...]
--- OUTSIDE RECORDS SUMMARY | 2024-11-22 15:14 | XMS_ITS | Encounter Summary ---
Author Organization [facility] Address [address] [place] [address]. [place], [place] [address] [place] [address] Care Team Providers Care Fitness Center Attendant Name Role Phone Unavailable Primary Care Provider Unavailabl e Encounter Details Date Type Department Care Team (Late st Contact Info) Description 10/25/1995 Abstract [facility] CONVERSION [address] [place] [address] , Generic Conversion, Social History Tobacco Use [...]
--- OUTSIDE RECORDS SUMMARY | 2024-11-22 15:14 | XMS_ITS | Encounter Summary ---
Author Organization [facility] Address [address] [place] [address]. [place], [place] [address] [place] [address] Care Team Providers Care Material Spreader Name Role Phone Unavailable Primary Care Provider Unavailabl e Encounter Details Date Type Department Care Team (Late st Contact Info) Description 03/01/2010 Abstract [facility] CONVERSION [address] [place] [address] William Hyde, AIRCRAFT SYSTEMS REPAIRER [address] [place] [address] Social History Tobacco Use Types Packs/Day Years [...]
--- OUTSIDE RECORDS SUMMARY | 2024-11-22 15:14 | XMS_ITS | Encounter Summary ---
Author Organization [facility] Address [address] [place] [address]. [place], [place] [address] [place] [address] Care Team Providers Care Classifier Operator Name Role Phone Unavailable Primary Care Provider Unavailabl e Encounter Details Date Type Department Care Team (Late st Contact Info) Description 12/25/2001 Abstract [facility] CONVERSION [address] [place] [address] , Generic Conversion, Social History Tobacco Use [...]
--- OUTSIDE RECORDS SUMMARY | 2024-11-22 15:14 | XMS_ITS | Patient Health Summary ---
Author Organization [facility] Address [address] [place] [address] Care Team Providers Care National Sales Director Name Role Phone Unavailable Primary Care Provider Unavailabl e Note from [facility],non-owned Affiliates and Associated Physician Practices is amultiple site organization consisting of ambulatory clinics and hospital sitesin [place], [place], [place] and [place]. This disclosure is being madepursuant to the Care Everywhere program and may not contain all information available regarding this patient. Last updated 18.[facility] Allergies * Aspirin(Unknown) Medications * Be aware that medications may not be up to date on this document. Alwaysverify current medications with the patient. * Vortioxetine HBr (TRINTELLIX PO) * Cetirizine HCl (ZYRTEC PO) * drospirenone-ethinyl estradiol (MALINDA) 3-0.02 MG tablet Take 1 tablet by mouth once daily * fluticasone propionate (FLONASE) 50 MCG/ACT nasal spray(Started 08/15/2019) [place] 2 sprays into each nostril once daily * meclizine (ANTIVERT) 25 MG tablet(Started 08/15/2019) Take 1 tablet by mouth 2 times daily as needed for Dizziness Social History Tobacco Use Types Packs/Day Years [...]
--- OUTSIDE RECORDS SUMMARY | 2024-11-22 15:14 | XMS_ITS | Encounter Summary ---
Author Organization [facility] Address [address] [place] [address]. [place], [place] [address] [place] [address] Care Team Providers Care Business Support Professional Name Role Phone Unavailable Primary Care Provider Unavailabl e Encounter Details Date Type Department Care Team (Late st Contact Info) Description 02/21/1996 Abstract [facility] CONVERSION [address] [place] [address] , Generic Conversion, Social History Tobacco Use [...]
--- OUTSIDE RECORDS SUMMARY | 2024-11-22 15:14 | XMS_ITS | Clinical Summary ---
Author Organization [facility] Address [address] [place] [address]. [place] [address] [place] [address] Care Team Providers Care Level Vial Sealer Name Role Phone Patrick Locke MD Primary Care Provider [phone] Allergies Active Allergy Reactions Criticality Noted Date Comments Aspirin Unknown 03/30/2022 Reports allergy, unknown reaction from when she was a child Nsaids Unknown 03/30/2022 Reports allergy, unknown reaction from when she was a child Medications methocarbamol (ROBAXIN-750) 750 MG Tab Take 1 tablet (750 mg total) by mouth 4 (four) times daily as needed. 40 tablet 2 Active diazePAM 5 MG tabletIndications: Lumbar radiculopathy Take 1 tablet (5 mg total) by mouth every 8 (eight) hours as needed for Muscle Spasms. 10 tablet 2 Active Social History Tobacco Use Types Packs/Day [...] Mass Index 33.52 03/30/2022 9:24 AM CDT Plan of Treatment Health Maintenance Due Date Last Done Comments Cervical Cancer Screening Pa p Smear (Age 30 to 64) Every 3 Years 1970 Colorectal Cancer Screening Colonoscopy (10 Years) 1970 Annual Physical 1973 Hepatitis C 1988 DTaP, Tdap and Td Vaccines ( 1 - Tdap) 1989 Hepatitis B Vaccines (1 of 3 - 19+ 3-dose series) 1989 Cervical Cancer Screening Pa p with HPV Testing (Age 30 to 64) Every 5 Years 2000 Cervical Cancer Screening wi th HPV 2000 Mammogram Screening 2010 Zoster Vaccines (1 of 2) 2020 COVID-19 Vaccine (2023-2 5 season) 2024 01/29/2021, 01/01/2021 Influenza Adult (#1) 2024 Meningococcal Vaccine Aged Out No marisela macario eligible based on patient's age to complete this topic Pneumococcal Vaccine: Pediatrics (0 to 5 Years) and At-Risk Patients (6 to 64 Years) Aged Out No longer eligible b ased on patient's age to complete this topic RSV Immunizations Under 20 Months Aged Out No longer eligible b ased on patient's age to complete this topic Insurance [facility] [place] Care Teams Level Vial Sealer Relationship Specialty Start Date End Date Patrick Locke MD [address] [place] [address] PCP - General INTERNAL MEDICINE 03/30/22
--- OUTSIDE RECORDS SUMMARY | 2024-11-22 15:14 | XMS_ITS | Encounter Summary ---
Author Organization [facility] Address [address] [place] [address]. [place], [place] [address] [place] [address] Care Team Providers Care Ip Architect Name Role Phone Unavailable Primary Care Provider Unavailabl e Encounter Details Date Type Department Care Team (Late st Contact Info) Description 01/15/1999 Abstract [facility] CONVERSION [address] [place] [address] , Generic Conversion, Social History Tobacco Use [...]
--- OUTSIDE RECORDS SUMMARY | 2024-11-22 15:16 | XMS_ITS | Encounter Summary ---
Author Organization [facility] Address [address] [place] [address] Care Team Providers Care Heel Sprayer Name Role Phone Patrick Locke MD Primary Care Provider [phone] Reason for Visit * Reason Onset Date Comments Results 12/22/2011 pathology Encounter Details Date Type Department Care Team (Late st Contact Info) Description 12/22/2011 Telephone [facility] BREAST SURGERY - ENRIQUE DING [address] [place] [address] [place] [address] [place] [address] Results (pathology) Social History Tobacco Use Types Packs/Day Years Used Date Smoking Tobacco: Never Smokeless Tobacco: Never Alcohol Use Standard Drinks/Week Comments Yes 0 (1 standard drink = 0.6 oz pur e alcohol) moderate Sex and Gender Information Value Date Recorded Sex Assigned at Not on file Gender Identity Not on file Sexual Orientation Not on file documented as of this encounter Miscellaneous Notes * Telephone Encounter - Joanna Jones - 12/22/2011 1:25 PM AIR DIRECTOR Gave pathology results on right needle localized breast biopsy done at [facility] on December 18. Pathology revealed in the right breast tissue mild fibrocystic changes, focal columnar cell change without atypia and microcalcifications. States is doing well. No complaints of pain. Set up follow up appointment with Dr. Norris on December 26 at 2:30. DIRECTOR documented in this encounter Plan of Treatment Not on file documented as of this encounter Visit Diagnoses Not on filedocumented in this encounter Care Teams Heel Sprayer Relationship Specialty Start Date End Date Patrick Locke MD [address] [place] [phone] PCP - General Internal Medicine 12/18/11 documented as of this encounter
--- OUTSIDE RECORDS SUMMARY | 2024-11-22 15:16 | XMS_ITS | Encounter Summary ---
Author Organization [facility] Address [address] [place] [address] Care Team Providers Care Proofer Prepress Name Role Phone Patrick Locke MD Primary Care Provider [phone] Reason for Visit * Auth/Cert (Routine) - Closed Specialty Diagnoses / Procedures Referred By Contac t Referred To Contact General Surgery Diagnoses ABNORMAL MAMMOGRAM Procedures BREAST BIOPSY [facility] [address] [place] [address] Referral ID Status Reason Start Date Expiration Date Visits Re quested Visits Authorized [id number] Closed 12/08/2011 12/07/2012 1 1 Encounter Details Date Type Department Care Team (Late st Contact Info) Description 12/18/2011 8:30 AM NEUROSCIENTIST - 12/18/2011 9:20 AM NEUROSCIENTIST Surgery [facility] [place] [place] [address] [place] [address] [place] [address] [place] [address] BREAST BIOPSY Surgery Details Date/Time Status Location OR Service Patient Class Case Class Case Type Trauma Case? 12/18/2011 8:30 AM Posted [facility] CC OR CC OR 02 General Surgery Surgical OP/Extended Care Elective No Panel 1 Procedure LRB Anes Op Region Wound Class Comments BREAST BIOPSY Right Monitored Anesthetic Care Breast Clean-I Surgeon Surgeon Role Service Panel Maryse Fischer MD Primary General Surgery 1 documented in this encounter Social History Tobacco Use Types Packs/Day Years [...] Sign Reading Time Taken Comments Blood Pressure 110/71 12/18/2011 7:24 AM NEUROSCIENTIST Pulse 62 12/18/2011 7:24 AM NEUROSCIENTIST Temperature 37.3 ??C (99.1 ??F) 12/18/2011 7:24 AM CS T Respiratory Rate 14 12/18/2011 7:24 AM NEUROSCIENTIST Oxygen Saturation 100% 12/18/2011 7:24 AM NEUROSCIENTIST Inhaled Oxygen Concentration - - Weight 79.4 kg (175 lb) 12/18/2011 7:24 AM NEUROSCIENTIST Height 172.7 cm (5' 8 ) 12/15/2011 1:45 PM NEUROSCIENTIST Body Mass Index 26.61 12/15/2011 1:45 PM NEUROSCIENTIST documented in this encounter Discharge Instructions * Discharge Instructions* Maryse Fischer MD - 12/18/2011 9:40 AM NEUROSCIENTIST POSTOPERATIVE INSTRUCTIONS AFTER BREAST BIOPSY/LUMPECTOMY 1. It is helpful to use an ice bag intermittently on the area of the biopsy on the day of the surgery. 2. You may be more comfortable wearing a sports bra or other soft supportive bra. 3. No strenuous activity for 4-5 days. 4. Your dressing is a skin glue called Dermabond. It looks like a nail ivorian over your incision. It will flake off in about a week. 5. You may shower tomorrow. 6. It takes 3-5 days to get the pathology report. We will call you with the result and schedule a follow-up appointment. 7. If you have any questions or problems call the office at [phone] OSCIENTIST documented in this encounter Medications at Time of Discharge Medication Sig Dispensed Refills Start Date End Date cetirizine (ZYRTEC) 10 mg Oral tablet Take 10 mg by mouth daily. NORGESTIMATE-ETHINYL ESTRADIOL (TRI-PREVIFEM, 28, ORAL) Take by mouth. documented as of this encounter H&P Notes * Maryse Fischer MD - 12/18/2011 8:36 AM CST Progress Notes PATIENT: Arnoldo Mcmahan : 1970 DATE: 12/05/2011 CHIEF COMPLAINT: abnormal mammogram HISTORY OF PRESENT ILLNESS: Arnoldo Mcmahan is a 41 y.o. female here for evaluation and recommendations regarding a recent abnormal mammogram. She was called in for additional views of the right breast. She was told she could do short-term followup or core biopsy. She denies any lumps, skin changes, nipple discharge, or pains in either breast. PMH: Past Medical History Diagnosis Date ??? Urticaria, dermatographic ??? Skin rash PSH: No past surgical history on file. ALLERGY: Allergies Allergen Reactions ??? Aspirin Other (See Comments) Pt hasn't taken since she was a kid MEDS: Current Outpatient Prescriptions Medication Sig Dispense Refill ??? cetirizine (ZYRTEC) 10 mg Oral tablet Take 10 mg by mouth daily. ??? NORGESTIMATE-ETHINYL ESTRADIOL (TRI-PREVIFEM, 28, ORAL) Take by mouth. FHX: Family History Problem Relation Age of Onset ??? Colon Cancer Maternal Grandmother 50s ??? Heart Disease Paternal Grandfather heart attack ??? Heart Disease Paternal Uncle heart attack ??? Heart Disease Other x2 uncles heart attack SOC: History Social History ??? Marital Status: Spouse Name: N/A Number of Children: 2 ??? Years of Education: N/A Occupational History ??? [employer] Social History Main Topics ??? Smoking status: Never Smoker ??? Smokeless tobacco: Never Used ??? Alcohol Use: Yes moderate ??? Drug Use: No ??? Sexually Active: Other Topics Concern ??? Not on file Social History Narrative ??? No narrative on file ROS: Constitutional: Negative for fever, weight loss and malaise/fatigue. Respiratory: Negative for cough. Cardiovascular: Negative for chest pain and leg swelling. Gastrointestinal:. Negative for abdominal pain. Genitourinary: Negative for dysuria. Musculoskeletal: Negative for myalgias and joint pain. Skin: Negative for rash. Neurological: Negative for dizziness and headaches. Psychiatric/Behavioral: Negative for depression Female: OB History Grav Para Term Abortions TAB SAB Ect Mult Living 2 2 2 Obstetric Comments Age @ onset of menses:15 Age @ first live : 22 The remainder of the review of systems including cardiovascular, pulmonary, GI/, neurologic, and endocrine are negative except as noted above. Immunizations: non-contributory PHYSICAL EXAM: BP 110/74 Ht 5' 7.5 (1.715 m) Wt 180 lb (81.647 kg) BMI 27.78 kg/m2 LMP 11/22/2011 General: well-developed, well-nourished HEENT: normocephalic/atraumatic. Extra-occular movements are intact. Sclera anicteric. Neck is supple without masses. No thyroid nodules. No lymphadenopathy. Cardiovascular: S1, S2 without murmur. No palpable thrill. 2+ radial pulses. Lungs - clear to auscultation bilaterally. No wheezes. Abdomen: Soft, non-tender. No masses. Extremities: no edema Neurologic: sensory and motor grossly intact. Alert and oriented x 3. Breasts: Nipples are everted. She has very large breasts. The right side is larger. Neither side has dominant mass, skin changes, nipple discharge, or axillary lymphadenopathy. IMAGING: I personally reviewed imaging dated: 11/28/11: Bilateral distal views and right ultrasound-Spot compression of the left breast causes resolution of the area in question. On the right the area of asymmetric density in the medial aspect does improve upon Spot compression but still persists. Ultrasound is negative. Short-term followup of the area in the right breast core biopsy would be recommended. 11/06/11: Bilateral screening mammogram-scattered fibroglandular densities. In the posterior medialaspect of the right breast is an asymmetric density seen on both views. This does appear to be a change compared to her prior views. The lateral aspect of the left breast on the CC view is some asymmetric density. Additional imaging is recommended for both breasts. 02/07/11: Right mammogram-this is a short-term followup of a probable lymph node within the right breast. Mammogram today is normal 10/06/10: Bilateral mammogram and right ultrasound-asymmetric density within the left breast is no longer visualized. The nodular density noted in the right breast and low does persist. It is not seen on the CC view. Ultrasound shows a lymph node measuring 5 mm at the 10:00 position. This does correspond to the mammographic finding ASSESSMENT AND PLAN: right NL bx New density within the right breast. This is likely normal variation but does represents a change compared to her prior imaging. Ultrasound is negative. We discussed the pros and cons of short-term followup mammogram in 6 months versus biopsy for definitive diagnosis. While I think that either would be fine she does wish to have a histologic confirmation. We will proceed with needle localized biopsy in the near future Maryse Fischer MD, FACS OSCIENTIST documented in this encounter OR Notes * OR Anesthesia - Stl Scanning, [facility] - 12/23/2011 8:31 PM CST Electronically signed by Terri, [facility] [employer] Incoming at 12/23/2011 8:31 PM NEUROSCIENTIST * OR Anesthesia - Juan Hare MD - 12/18/2011 11:05 AM CST Phase II Postanesthesia Evaluation Including [facility] Modified Sunshine Score Patient seen and evaluated: RESPIRATORY FUNCTION: Respiration: able to breath and cough freely (12/18/11 104) [2=able to breathe and cough freely, 1=dyspnea, limited breathing or tachypnea, 0=apnea or mechanicventilator] O2 Saturation: able to maintain O2 saturation greater than 92% on room air (12/18/11 104) [2=able to maintain O2 saturation greater than 92% on room air, 1=needs O2 inhalation to maintain O2 saturation greater than 90%, 0=O2 saturation less than 90% even with O2 supplement] Resp: 19 (12/18/11 1034)SpO2: 100 % (12/18/11 1034) CARDIOVASCULAR FUNCTION: BP: 106/69 mmHg (12/18/11 1034) Circulation: BP within 20% of preanesthetic level (12/18/11 104) [2=BP within 20% of preanesthetic level, 1=BP within 20-49% of preanesthetic level, 0=BP within 50%of preanesthetic level] MENTAL STATUS, NEURO, ACTIVITY: Consciousness: fully awake (12/18/11 104) [2=fully awake, 1=arousable on calling, 0=not responding] Activity: able to move 4 extremities voluntarily or on command (12/18/11 104) [2=able to move 4 extremities voluntarily or on command, 1=able to move 2 extremities voluntarily or on command, 0=unable to move extremities voluntarily or on command] Ambulation: able to stand up and walk straight, on ordered bedrest, or performing at patient's prior level of function (12/18/111042) [2=able to stand up and walk straight, on ordered bedrest, or performing at patient's prior level of function, 1=vertigo when erect, 0=dizziness when supine] TEMPERATURE: Temp: 97.8 ??F (36.6 ??C) (12/18/11 0941) PAIN: Pain Rating: Rest: 3 (12/18/11 103) Presence of Pain: denies pain/discomfort (12/18/11 1034) Pain: pain free (12/18/111042) [2=pain free, 1=pain handled by oral medication, 0=pain requiring parenteral medication] NAUSEA AND VOMITING: Fasting/Feeding: able to drink fluids, ice chips or NPO (12/18/111042) [2=able to drink fluids, ice chips or NPO, 1=nauseated, 0=nausea and vomiting] POSTOPERATIVE HYDRATION: Intake/Output Summary (Last 24 hours) at 12/18/11 1106 Last data filed at 12/18/11 0956 Gross per 24 hour Intake 722 ml Output 0 ml Net 722 ml Urine Output: unable to void but comfortable (12/18/111042) [2=has voided, adequate urine output per device, or not applicable, 1=unable to void but comfortable, 0=unable to void and uncomfortable] WOUND: Dressing: dry and clean or not applicable (12/18/111042) [2=dry and clean or not aplicable, 1=wet, marked and not increasing, 0=growing area of wetness] [facility] Modified Sunshine Score: Score: 19 (12/18/111042) COMMENTS: No apparent Anesthesia related complications Juan Hare MD 12/18/2011 11:06 AM OSCIENTIST * Operative Report - Maryse Fischer MD - 12/18/2011 9:37 AM CST Patient: Arnoldo Mcmahan : 1970 DATE: 12/18/2011 PREOPERATIVE DIAGNOSIS: right breast mass. POSTOPERATIVE DIAGNOSIS: right breast mass PROCEDURE: Right needle localized breast biopsy SURGEON: Maryse Fischer MD ANESTHESIA: Local MAC ESTIMATED BLOOD LOSS: Minimal SPECIMEN: Right breast biopsy INDICATION: Arnoldo Mcmahan is a very pleasant 41 y.o. year old female who was noted to have a newassymmetric density in the right breast on this year's mammogram. The area is not seen on US and the location is not amenable to stereotactic biopsy. She presents for excisional biopsy for definitivehistologic diagnosis. DESCRIPTION OF PROCEDURE: After informed consent the patient was brought to the operating room and positioned on the table. After adequate anesthesia, the right breast was prepped and draped. The wire entered high in the upper inner quadrant Local anesthetic was administered at a site above the areolar border. An incision was then made. The skin was elevated using retraction and the Bovie until the wire could be grasped and brought into the wound. The wire was then followed down and a margin oftissue was taken around the tip of the wire. This was oriented and sent for specimen mammogram. No mass was specifically identified on the specimen mammogram but there was dense tissue. The wound was then irrigated a checked for hemostatis. More local anesthetic was administered. The incision was closed with interrupted 4-0 Monocryl sutures and a running subcuticular stitch. Dermabond was applied. Needle and sponge counts were correct x 2. Overall she tolerated the procedure well and was sent tothe recovery room in stable condition. Signed: Maryse Fischer MD 12/18/2011, 9:37 AM OSCIENTIST * Evelia-OP - Saige Cyr RN - 12/18/2011 9:08 AM CST 1% Lidocaine plain injected at operative site with 0.25% SENSORCAINE PLAIN LOCAL INJECTION For total of 25 MLS 0.9% SODIUM CHLORIDE 1000ML FOR IRRIGATION * OR Anesthesia - Juan Hare MD - 12/18/2011 8:06 AM CST Pre-Anesthesia Evaluation - Long Form 12/18/2011 8:06 AM Name: Arnoldo Mcmahan Age: 41 y.o. Sex: female CSN: [id number] Procedure: Procedure(s): BREAST BIOPSY Surgeons/Assistants: Surgeon(s) and Role: * Maryse Fischer MD - Primary Allergies Allergen Reactions ??? Aspirin Other (See Comments) Pt hasn't taken since she was a kid Prescriptions prior to admission Medication Sig Dispense Refill ??? cetirizine (ZYRTEC) 10 mg Oral tablet Take 10 mg by mouth daily. ??? NORGESTIMATE-ETHINYL ESTRADIOL (TRI-PREVIFEM, 28, ORAL) Take by mouth. Current Facility-Administered Medications Medication Dose Route Frequency Provider Last Rate Last Dose ??? lactated ringers solution IV Pre-Proc Continuous Maryse Fischer MD ??? lidocaine PF 2% (XYLOCAINE MPF) injection 0.3 mL 0.3 mL Intradermal Pre-Proc Once Maryse Fischer MD ??? ceFAZolin (ANCEF) IVPB 2,000 mg 2,000 mg IV Pre-Proc Once Maryse Fischer MD Patient Active Problem List Diagnoses Date Noted ??? Lump or mass in breast 12/05/2011 ??? Urticaria, dermatographic ??? Skin rash Past Medical History Diagnosis Date ??? Urticaria, dermatographic ??? Skin rash ??? SVT (supraventricular tachycardia) no medication Past Surgical History Procedure Date ??? Ear tube insertion bilateral at age 5yrs History Substance Use Topics ??? Smoking status: Never Smoker ??? Smokeless tobacco: Never Used ??? Alcohol Use: Yes moderate Family History Problem Relation Age of Onset ??? Colon Cancer Maternal Grandmother 50s ??? Heart Disease Paternal Grandfather heart attack ??? Heart Disease Paternal Uncle heart attack ??? Heart Disease Other x2 uncles heart attack Previous Anesthesia Problems/Concerns: No anesthesia problems/complications History of PONV No Review of Systems Cardiovascular: intermittent SVT Respiratory: negative Gastroenterology: negative PHYSICAL EXAM BP 110/71 Pulse 62 Temp(Src) 99.1 ??F (37.3 ??C) (Temporal) Resp 14 Ht 5' 8 (1.727 m) Wt175 lb (79.379 kg) BMI 26.61 kg/m2 SpO2 100% LMP 11/22/2011 Weight: Weight: 175 lb (79.379 kg) (12/18/11 0724) Height: Ht Readings from Last 1 Encounters: 12/15/11 5' 8 (1.727 m) BMI: Body mass index is 26.61 kg/(m^2). Airway: normal range of motion: Airway Class:I ; None Lungs: clear to auscultation bilaterally, normal respiratory effort Heart: regular rate and rhythm, S1, S2 normal, no murmur, click, rub or gallop Neuro: alert, oriented x 3, no defects noted in general exam. Vascular Access: Peripheral Line LABS No results found for this basename: WBC, MANUALWBC, HGB, HGBPOC, HCT, HCTPOC, PLT, MCV No results found for this basename: NA, K, CL, CO2, CA, BUN, CREAT, GLUCOSE, ANIONGAP, BCRATIO No results found for this basename: INR, PT, PROTIMEPOC No results found for this basename: HCGURPOC, HCGQUALUR, HCGQUAL, HCGQUANT, HCGINTACT No results found for this basename: glucpoc EKG: none Other Studies/Considerations: None Postop pain management discussed yes Smoking/Tobacco Counseling: None Recommendations: None ASA Physical Status: ASA 2 - Patient with mild systemic disease with no functional limitations I have seen and examined this patient and confirm that all data is current and accurate. Yes Choice of Anesthesia/Anesthesia Plan: Proceed and General I have discussed the anesthetic options and the risks/benefits with the patient/family. Questions have been solicited and answered. Yes Juan Hare MD OSCIENTIST documented in this encounter Miscellaneous Notes * Scanned Form - [facility] Scanning, [facility] - 12/23/2011 8:31 PM CST OSCIENTIST * Scanned Form - [employer] Scanning, [facility] - 12/23/2011 8:31 PM CST OSCIENTIST * Scanned Form - [employer] Scanning, [facility] - 12/23/2011 8:31 PM CST OSCIENTIST * Patient Instructions - [employer] Scanning, [facility] - 12/23/2011 8:31 PM CST Electronically signed by Interface, [facility] [employer] Incoming at 12/23/2011 8:31 PM NEUROSCIENTIST documented in this encounter Plan of Treatment Not on file documented as of this encounter Procedures Procedure Name Priority Date/Time Associated Diagnosis Comments PATHOLOGY Routine 12/18/2011 9:22 AM NEUROSCIENTIST BREAST BIOPSY 12/18/2011 8:00 AM NEUROSCIENTIST ABNORMAL MAMMOGRAM POC , URINE Routine 12/18/2011 7:15 AM NEUROSCIENTIST documented in this encounter Results * PATHOLOGY (12/18/2011 9:22 AM NEUROSCIENTIST) SURGICAL PATHOLOGY ?[facility] ?[address] ? [place], [place] ??[address] ? Patient: ??ARNOLDO MCMAHAN ? : ??1970 ? Procedure Date: ??12/18/2011 ? Accession Date: ??12/18/2011 ? Case No: ??[id number] ? Ordering Dr: ??MARYSE FISCHER ? Case type SW is performed by [facility], [address], ? [place], [place] ??[address]; all other case types are performed by [facility] ? [facility], [facility] [place] [address] [place] ??[address] ?SURGICAL PATHOLOGY & NON-GYNECOLOGIC CYTOPATHOLOGY REPORT ? DIAGNOSIS ? BREAST, RIGHT, EXCISIONAL BIOPSY: ? - MILD FIBROCYSTIC CHANGES. ? - FOCAL COLUMNAR CELL CHANGE WITHOUT ATYPIA. ? - MICROCALCIFICATIONS. ? Specimen Description: ? Right breast biopsy. ? Operative Procedure: ? Needle localization biopsy. ? Patient Information/History/Di agnosis: ? Abnormal mammogram, long stitch lateral, short stitch superior, tissue ? removed 9:22. ? Gross: ? Received in a single container labeled Arnoldo McmahanJuan J, right breast ? biopsy and designated formalin 9:30 is a piece of fibrofatty tissue ? measuring 7 cm anterior to posterior, 4.8 cm medial to lateral, and 1.5 cm ? inferior to superior. A needle localization wire penetrates the mid ? inferior portion of the specimen. There is blue dye-staining located ? medially and superiorly in the mid portion of the specimen. The margins are ? identified by the application of ink as follows: superior-blue, lateral- ? black, inferior-yellow, and medial-green. The specimen is serially ? sectioned from posterior to anterior. No mass lesions are identified. The ? entire specimen is submitted as follows: A1-posterior margin ? perpendicularly sectioned; A2 through X30-fmtzyun portion with composites ? in A5-A6, A7-A8, A9-A10, A11-A12, A13-A14, A15-A16, and Z05-nboimmnv margin ? perpendicularly sectioned. ? KHF/SKW 12.18.2011 12:22 pm ? Microscopic: ? The slides are labeled [id number] and Arnoldo Mcmahan. ? The right breast specimen shows benign parenchyma with very mild ? fibrocystic changes. An area of columnar cell change without atypia is also ? seen. Microcalcifications are identified in benign breast ducts. There is ? no evidence of malignancy. ? COMMENT: Columnar cell lesions of the breast may be broadly categorized as ? (1) columnar cell change, with or without atypia, and (2) columnar cell ? hyperplasia, with or without atypia. Columnar cell lesions without atypia ? require no further treatment. The limited available clinical data suggest ? that columnar cell lesions with atypia, also designated as flat epithelial ? atypia, but without complex architectural patterns, may be associated with ? a very low risk of progression to invasive carcinoma, the magnitude of ? which has not been established. When columnar cell lesions with atypia ? (flat epithelial atypia) are encountered in needle core biopsies or in ? limited en bloc biopsies, subsequent excision of the lesion is recommended. ? Based upon current understanding, the presence of columnar cell lesions ? with atypia (flat epithelial atypia) alone in larger, excisional specimens ? requires no additional surgical management. ? Reference: Adv Rosalind Pathol 2003;10:113-124. ? GL/PHC 12.21.2011 11:12 am ? Staging Form: ? No. ? ELECTRONIC SIGNATURE FOR CURTIS JOY M.D.- 12/21/11 04:36 pm [facility] [employer] [facility] Specimen of unknown material (specimen) 12/18/2011 9:22 AM NEUROSCIENTIST Maryse Fischer MD PATHOLOGY/CYTOLOGY O RDERABLES [facility] CLIA# [id number] [address] [place] [address] * POC , URINE (12/18/2011 7:15 AM NEUROSCIENTIST) , URINE POC Negative Negative [facility] [employer] [facility] CLIA LICENSE [id number] [facility] 12/18/2011 7:15 AM NEUROSCIENTIST 12/18/2011 7:15 AM NEUROSCIENTIST Comment:URINE Maryse Fischer MD POINT OF CARE TESTIN G [facility] CLIA# [id number] [address] [address] documented in this encounter Visit Diagnoses Not on filedocumented in this encounter Administered Medications Inactive Administered Medications - up to 3 most recent administrations Medication Order MAR Action Action Date Dose Rate Site ceFAZolin (ANCEF) IVPB 2,000 mg 2,000 mg, IV, PRE-PROCEDURE ONCE, 1 dose, Starting on 12/18/11 at 0716, Until Sun12/18/11 at 0852, Routine Given 12/18/2011 8:52 AM NEUROSCIENTIST 2,000 mg documented in this encounter Active and Recently Administered Medications Times are shown in NEUROSCIENTIST. Scheduled Medication Order 12/16/2011 12/17/2011 12/18/2011 ceFAZolin (ANCEF) IVPB 2,000 mg (COMPLETED) 2,000 mg, IV, PRE-PROCEDURE ONCE, 1 dose, Starting on Sun12/18/11 at 0716, Until 12/18/11 at 0852, Routine 0852 (Given - Provid er: Keven Dubon CRNA) documented in this encounter Care Teams Proofer Prepress Relationship Specialty Start Date End Date Patrick Locke MD [address] [place] [address] [place] [phone] PCP - General Internal Medicine 12/18/11 documented as of this encounter
--- OUTSIDE RECORDS SUMMARY | 2024-11-22 15:16 | XMS_ITS | Encounter Summary ---
Author Organization [facility] Address [address] [place] [address] Care Team Providers Care Ward Service Supervisor Name Role Phone Patrick Locke MD Primary Care Provider [phone] Reason for Referral * Outpatient Services (Routine) - Closed Specialty Diagnoses / Procedures Referred By Contac t Referred To Contact Radiology Diagnoses Lump or mass in breast Procedures MAMMO [place] [address] [place] [address] [facility] [address] [place] [address] Referral ID Status Reason Start Date Expiration Date Visits Re quested Visits Authorized [id number] Closed 12/05/2011 12/04/2012 1 1 CULTURAL CROP FARM MANAGER Reason for Visit * Outpatient Services (Routine) - Closed Specialty Diagnoses / Procedures Referred By Contac t Referred To Contact Radiology Diagnoses Lump or mass in breast Procedures MAMMO NEEDLE [place] [address] [place] [address] [facility] [address] [place] [address] Referral ID Status Reason Start Date Expiration Date Visits Re quested Visits Authorized [id number] Closed 12/05/2011 12/04/2012 1 1 Encounter Details Date Type Department Care Team (Latest Contact Info) Description 12/18/2011 7:06 AM AGRICULTURAL CROP FARM MANAGER - 12/18/2011 11:59 PM AGRICULTURAL CROP FARM MANAGER Hospital Encounter [facility] [address] [place] [phone] [place] [address] [place] [address] Discharge Disposition: Home or Self Care Social History Tobacco Use Types Packs/Day Years Used Date Smoking Tobacco: Never Smokeless Tobacco: Never Alcohol Use Standard Drinks/Week Comments Yes 0 (1 standard drink = 0.6 oz pur e alcohol) moderate Sex and Gender Information Value Date Recorded Sex Assigned at Not on file Gender Identity Not on file Sexual Orientation Not on file documented as of this encounter Medications at Time of Discharge Medication Sig Dispensed Refills Start Date End Date cetirizine (ZYRTEC) 10 mg Oral tablet Take 10 mg by mouth daily. NORGESTIMATE-ETHINYL ESTRADIOL (TRI-PREVIFEM, 28, ORAL) Take by mouth. documented as of this encounter Miscellaneous Notes * Scanned Form - St[facility] Scanning, [facility] - 12/21/2011 9:31 PM CST CULTURAL CROP FARM MANAGER documented in this encounter Plan of Treatment Not on file documented as of this encounter Procedures Procedure Name Priority Date/Time Associated Diagnosis Comments MAMMO NEEDLE LOC EA LESION RT Routine 12/18/2011 8:49 AM AGRICULTURAL CROP FARM MANAGER Lump or mass in breast MAMMO DIAGNOSTIC UNI RIGHT W OR WO CAD Routine 12/18/2011 8:28 AM AGRICULTURAL CROP FARM MANAGER Lump or mass in breast documented in this encounter Results * MAMMO NEEDLE LOC EA LESION RT (12/18/2011 8:49 AM AGRICULTURAL CROP FARM MANAGER) Anatomical Region Laterality Modality Breast Right Ultrasound 12/18/2011 7:16 AM AGRICULTURAL CROP FARM MANAGER Addenda Addendum by Summer Hampton on 12/22/2011 12:43 PM AGRICULTURAL CROP FARM MANAGER ADDENDUM: The pathology from the patient's recent right breast needle localization reveals mild fibrocystic changes; focal columnar cell change without atypia; microcalcifications. These findings are benign and concordant. The patient will be informed of the above findings by the office of Dr. Yeny Norris. Impressions 12/19/2011 10:26 AM AGRICULTURAL CROP FARM MANAGER IMPRESSION: Technically successful needle localization. Narrative 12/19/2011 10:26 AM AGRICULTURAL CROP FARM MANAGER RIGHT BREAST WIRE LOCALIZATION USING DIGITAL MAMMOGRAPHIC GUIDANCE AND SURGICAL SPECIMEN RADIOGRAPH DATE: 12/18/11 HISTORY: ??The patient has an asymmetry within the upper inner quadrant of the right breast. Needle localization has been requested PROCEDURE AND FINDINGS: The procedure was discussed with the patient. ??Written consent was obtained. After sterile preparation of the skin, the breast was placed in a compression grid, and 1% lidocaine was utilized for local anesthesia. A hook-wire system was advanced to the area of interest in the breast from a craniocaudal approach utilizing digital mammographic guidance. Orthogonal views were obtained to confirm appropriate needle/wire position. 0.2 cc of methylene blue dye was injected into the needle hub prior to the insertion of the wire. ??The patient tolerated the procedure well and there was no evidence of immediate complication. Images were marked for the surgeon, and the patient was transferred to the operating suite for surgical excision. The surgical specimen was subsequently received from the operating room and digital radiography was performed. The specimen radiograph demonstrates dense breast tissue and the hookwire system. The findings are communicated to the surgeon. Procedure Note Summer Hampton L - 12/19/2011 RIGHT BREAST WIRE LOCALIZATION USING DIGITAL MAMMOGRAPHIC GUIDANCE AND SURGICAL SPECIMEN RADIOGRAPH DATE: 12/18/11 HISTORY: The patient has an asymmetry within the upper inner quadrant of the right breast. Needle localization has been requested PROCEDURE AND FINDINGS: The procedure was discussed with the patient. Written consent was obtained. After sterile preparation of the skin, the breast was placed in a compression grid, and 1% lidocaine was utilized for local anesthesia. A hook-wire system was advanced to the area of interest in the breast from a craniocaudal approach utilizing digital mammographic guidance. Orthogonal views were obtained to confirm appropriate needle/wire position. 0.2 cc of methylene blue dye was injected into the needle hub prior to the insertion of the wire. The patient tolerated the procedure well and there was no evidence of immediate complication. Images were marked for the surgeon, and the patient was transferred to the operating suite for surgical excision. The surgical specimen was subsequently received from the operating room and digital radiography was performed. The specimen radiograph demonstrates dense breast tissue and the hookwire system. The findings are communicated to the surgeon. IMPRESSION IMPRESSION: Technically successful needle localization. Yeny Norris MD MAMMO ORDERABLES * MAMMO DIGITAL DIAG UNI RIGHT (12/18/2011 8:28 AM AGRICULTURAL CROP FARM MANAGER) Anatomical Region Laterality Modality Breast Right Mammography 12/18/2011 8:28 AM AGRICULTURAL CROP FARM MANAGER Impressions 12/19/2011 10:26 AM AGRICULTURAL CROP FARM MANAGER IMPRESSION: Technically successful needle localization. Narrative 12/19/2011 10:26 AM AGRICULTURAL CROP FARM MANAGER RIGHT BREAST WIRE LOCALIZATION USING DIGITAL MAMMOGRAPHIC GUIDANCE AND SURGICAL SPECIMEN RADIOGRAPH DATE: 12/18/11 HISTORY: ??The patient has an asymmetry within the upper inner quadrant of the right breast. Needle localization has been requested PROCEDURE AND FINDINGS: The procedure was discussed with the patient. ??Written consent was obtained. After sterile preparation of the skin, the breast was placed in a compression grid, and 1% lidocaine was utilized for local anesthesia. A hook-wire system was advanced to the area of interest in the breast from a craniocaudal approach utilizing digital mammographic guidance. Orthogonal views were obtained to confirm appropriate needle/wire position. 0.2 cc of methylene blue dye was injected into the needle hub prior to the insertion of the wire. ??The patient tolerated the procedure well and there was no evidence of immediate complication. Images were marked for the surgeon, and the patient was transferred to the operating suite for surgical excision. The surgical specimen was subsequently received from the operating room and digital radiography was performed. The specimen radiograph demonstrates dense breast tissue and the hookwire system. The findings are communicated to the surgeon. Procedure Note Summer Hampton - 12/19/2011 RIGHT BREAST WIRE LOCALIZATION USING DIGITAL MAMMOGRAPHIC GUIDANCE AND SURGICAL SPECIMEN RADIOGRAPH DATE: 12/18/11 HISTORY: The patient has an asymmetry within the upper inner quadrant of the right breast. Needle localization has been requested PROCEDURE AND FINDINGS: The procedure was discussed with the patient. Written consent was obtained. After sterile preparation of the skin, the breast was placed in a compression grid, and 1% lidocaine was utilized for local anesthesia. A hook-wire system was advanced to the area of interest in the breast from a craniocaudal approach utilizing digital mammographic guidance. Orthogonal views were obtained to confirm appropriate needle/wire position. 0.2 cc of methylene blue dye was injected into the needle hub prior to the insertion of the wire. The patient tolerated the procedure well and there was no evidence of immediate complication. Images were marked for the surgeon, and the patient was transferred to the operating suite for surgical excision. The surgical specimen was subsequently received from the operating room and digital radiography was performed. The specimen radiograph demonstrates dense breast tissue and the hookwire system. The findings are communicated to the surgeon. IMPRESSION IMPRESSION: Technically successful needle localization. Yeny Norris MD MAMMO ORDERABLES documented in this encounter Visit Diagnoses Diagnosis Lump or mass in breast documented in this encounter Administered Medications Inactive Administered Medications - up to 3 most recent administrations Medication Order MAR Action Action Date Dose Rate Site lidocaine PF 1% (XYLOCAINE MPF) 10 mg/mL (1 %) injection 30 mL 30 mL, Intradermal, ONE TIME ONLY, 1 dose, On Sun12/18/11 at 0830, Routine Given 12/18/2011 8:25 AM AGRICULTURAL CROP FARM MANAGER 6 mL Operative Site methylene blue (UROLENE BLUE) 1 % injection 10 mg 10 mg (1 mL), IV, SEE ADMIN INSTRUCTIONS, Starting on Sun12/18/11 at 0827, Until Sun12/19/11 at 0213, Routine Given 12/18/2011 8:25 AM AGRICULTURAL CROP FARM MANAGER 2 mg Operative Site sodium bicarbonate 4.2 % injection 5 mEq 5 mEq, See Admin Instructions, ONE TIME ONLY, 1 dose, On Sun12/18/11 at 0830, Routine Given 12/18/2011 8:25 AM AGRICULTURAL CROP FARM MANAGER 0.5 mEq Operative Site documented in this encounter Care Teams Ward Service Supervisor Relationship Specialty Start Date End Date Patrick Locke MD [address] [place] [phone] PCP - General Internal Medicine 12/18/11 documented as of this encounter
--- OUTSIDE RECORDS SUMMARY | 2024-11-22 15:16 | XMS_ITS | Encounter Summary ---
Author Organization [facility] Address [address] [place] [address] Care Team Providers Care Carbonizer Name Role Phone Patrick Locke MD Primary Care Provider [phone] Reason for Visit * Reason Comments Cyst Right breast wants t o discuss options of getting rid of it Encounter Details Date Type Department Care Team (Late st Contact Info) Description 09/29/2014 11:15 AM REAL PROPERTY EVALUATOR Office Visit [facility] BREAST SURGERY - [place] [address] [place] [address] [place] [address] [facility] [address] [place] [address] Lump or mass in breast (Primary Dx) Social History Tobacco Use Types Packs/Day Years [...] Sign Reading Time Taken Comments Blood Pressure 101/67 09/29/2014 11:18 AM REAL PROPERTY EVALUATOR Pulse 64 09/29/2014 11:18 AM REAL PROPERTY EVALUATOR Temperature - - Respiratory Rate - - Oxygen Saturation - - Inhaled Oxygen Concentration - - Weight 79.8 kg (176 lb) 09/29/2014 11:18 AM REAL PROPERTY EVALUATOR Height 172.7 cm (5' 8 ) 09/29/2014 11:18 AM REAL PROPERTY EVALUATOR Body Mass Index 26.76 09/29/2014 11:18 AM REAL PROPERTY EVALUATOR documented in this encounter Progress Notes * Yeny Norris MD - 09/29/2014 11:15 AM CST PATIENT: Beatrice Mcmahan : 1970 DATE: 09/29/2014 CHIEF COMPLAINT: Right breast mammographic density HISTORY OF PRESENT ILLNESS: Beatrice Mcmahan is a 44 y.o. female seen in early 2011 for an abnormalmammogram- she underwent a needle localized biopsy which was benign. She returns today for review of her mammogram. She has a small density within the right breast and 6 month followup has been recommended. She denies any lumps, skin changes, nipple discharge, or pains in either breast. She is a high school german professor at [employer] PMH: Past Medical History Diagnosis Date ??? Urticaria, dermatographic ??? Skin rash ??? SVT (supraventricular tachycardia) no medication PSH: Past Surgical History Procedure Laterality Date ??? Ear tube insertion bilateral at age 5yrs ??? Pr excise breast cyst 12/18/2011 BREAST BIOPSY performed by Yeny Norris MD at [facility] CC OR ALLERGY: Allergies Allergen Reactions ??? Asa [Aspirin] Other (See Comments) Pt hasn't taken since she was a kid MEDS: Current Outpatient Prescriptions Medication Sig Dispense Refill ??? HYDROcodone-acetaminophen (LORTAB) 5-500 mg Oral tablet Take 1 Tab by mouth every 4 hours as needed for Pain, Moderate. 20 Tab 0 ??? cetirizine (ZYRTEC) 10 mg Oral tablet Take 10 mg by mouth daily. ??? NORGESTIMATE-ETHINYL ESTRADIOL (TRI-PREVIFEM, 28, ORAL) Take by mouth. No current facility-administered medications for this visit. FHX: Family History Problem Relation Age of Onset ??? Colon Cancer Maternal Grandmother 50s ??? Heart Disease Paternal Grandfather heart attack ??? Heart Disease Paternal Uncle heart attack ??? Heart Disease Other x2 uncles heart attack SOC: History Social History ??? Marital Status: Spouse Name: N/A Number of Children: 2 ??? Years of Education: N/A Occupational History ??? [employer] Social History Main Topics ??? Smoking status: Never Smoker ??? Smokeless tobacco: Never Used ??? Alcohol Use: Yes Comment: moderate ??? Drug Use: No ??? Sexual Activity: Other Topics Concern ??? Not on file [...] as noted above. Immunizations: non-contributory PHYSICAL EXAM: There were no vitals taken for this visit. General: well-developed, well-nourished HEENT: normocephalic/atraumatic. Extra-occular movements [...] lymphadenopathy. IMAGING: I personally reviewed imaging dated: 09/21/14: Right mammogram and ultrasound at [facility] -this is a 6 month followup for the benign breast mass. There is a stable 7 mm oval circumscribed mass at 9:00. This is stable compared to her prior exam. 04/09/14: Right ad views and ultrasound at [facility] -spot compression views of the central outer right breast shows a persistent 7 mm ovoid nodule. By ultrasound this appears to be a complex cyst. 6 month followup imaging is recommended 02/20/14: Bilateral screening mammogram at [facility] -there is a new density in the right central breast and an additional imaging is recommended 1/10/12: Bilateral additional views and right ultrasound-Spot compression of the left breast causesresolution of the area in question. On the right the area of asymmetric density in the medial aspect does improve upon Spot compression but still persists. Ultrasound is negative. Short-term followupof the area in the right breast core [...] This does correspond to the mammographic finding PATHOLOGY: 12/18/11 BREAST, RIGHT, EXCISIONAL BIOPSY: - MILD FIBROCYSTIC CHANGES. - FOCAL COLUMNAR CELL CHANGE WITHOUT ATYPIA. - MICROCALCIFICATIONS. ASSESSMENT AND PLAN: Right breast mammographic density. This is most consistent with a benign cyst. I explained that theimaging could not definitively called a cyst amount Y. she is in followup mode. They will look for stability over a two-year period of time. The other option is aspiration. At this point she feels comfortable with explanation within with like to keep her 6 month followup appointment. These images will be done in [place] and she will call with questions. Yeny Norris MD, FACS cc: MD Saurav Carmichael MD PROPERTY EVALUATOR documented in this encounter Plan of Treatment Not on file documented as of this encounter Visit Diagnoses Diagnosis Lump or mass in breast- Primary documented in this encounter Care Teams Carbonizer Relationship Specialty Start Date End Date Patrick Locke MD [address] [place] [phone] PCP - General Internal Medicine 12/18/11 documented as of this encounter
--- OUTSIDE RECORDS SUMMARY | 2024-11-22 15:16 | XMS_ITS | Encounter Summary ---
Author Organization [facility] Address [address] [place] [address] Care Team Providers Care Building Code Inspector Name Role Phone Patrick Locke MD Primary Care Provider [phone] Encounter Details Date Type Department Care Team (Latest Contact Info) Description 12/18/2011 7:57 AM CARTON FORMING MACHINE TENDER - 12/18/2011 11:59 PM [facility] Hospital Encounter [facility] [address] [place] [phone] [place] [address] [place] [phone] Discharge Disposition: Home or Self Care Social [...] by mouth. documented as of this encounter Plan of Treatment Not on file documented as of this encounter Procedures Procedure Name Priority Date/Time Associated Diagnosis Comments MAMMO DIAGNOSTIC UNI RIGHT W OR WO CAD Routine 12/18/2011 8:28 AM CARTON FORMING MACHINE TENDER Lump or mass in breast documented in this encounter Results * MAMMO DIGITAL DIAG UNI RIGHT (12/18/2011 8:28 AM CARTON FORMING MACHINE TENDER) Anatomical Region Laterality Modality Breast Right Mammography 12/18/2011 8:28 AM CARTON FORMING MACHINE TENDER Impressions 12/19/2011 10:26 AM CARTON FORMING MACHINE TENDER IMPRESSION: Technically successful needle localization. Narrative 12/19/2011 10:26 AM CARTON FORMING MACHINE TENDER RIGHT BREAST WIRE LOCALIZATION USING DIGITAL MAMMOGRAPHIC [...] ORDERABLES documented in this encounter Visit Diagnoses Not on filedocumented in this encounter Care Teams Building Code Inspector Relationship Specialty Start Date End Date Patrick Locke MD [address] [place] [phone] PCP - General Internal Medicine 12/18/11 documented as of this encounter
--- OUTSIDE RECORDS SUMMARY | 2024-11-22 15:16 | XMS_ITS | Clinical Summary ---
Author Organization [facility] Address [address] [place] [address] Phone Care Team Providers Care Fermentologist Name Role Phone Patrick Locke MD Primary Care Provider [phone] Allergies Active Allergy Reactions Criticality Noted Date Comments Aspirin Other (See Comments) 12/05/2011 Pt hasn't taken since she was a kid Medications Medication Sig Dispensed Refills Start Date End Date Status cetirizine (ZYRTEC) 10 mg Oral tablet Take 10 mg by mouth daily. Active NORGESTIMATE-ETHINYL ESTRADIOL (TRI-PREVIFEM, 28, ORAL) Take by mouth. Active Active Problems Patient Care Coordination No te Formatting of this note migh t be different from the original. Primary Care: No primary provider on file. Referring Provider: Saurav Saravia MD [address] [facility] [address] [place] [id number] Other: Problem Noted Date Diagnosed Date Lump or mass in breast 12/05/2011 Overview (09/29/2014): Mammographic. BIRADS 3. In follow-up mode Urticaria, dermatographic Skin rash Family History Medical History Relation Name Comments Colon Cancer Maternal Grandmother 50s Heart Disease Other great pat uncle x2 uncles h eart attack Heart Disease Paternal Grandfather heart attack Heart Disease Paternal Uncle heart attack Relation Name Status Comments Maternal Grandmother Other great pat uncle Paternal Grandfather Paternal Uncle Social History Tobacco Use Types Packs/Day Years [...] Comments Blood Pressure 101/67 09/29/2014 11:18 AM CLIPMAN Pulse 64 09/29/2014 11:18 AM CLIPMAN Temperature 36.6 ??C (97.8 ??F) 12/18/2011 9:41 AM CS T Respiratory Rate 19 12/18/2011 10:34 AM CLIPMAN Oxygen Saturation 100% 12/18/2011 10:34 AM CLIPMAN Inhaled Oxygen Concentration - - Weight 79.8 kg (176 lb) 09/29/2014 11:18 AM CLIPMAN Height 172.7 cm (5' 8 ) 09/29/2014 11:18 AM CLIPMAN Body Mass Index 26.76 09/29/2014 11:18 AM CLIPMAN Plan of Treatment Health Maintenance Due Date Last Done Comments DTAP/TDAP/TD VACCINES (1 - Tdap) 1989 HEPATITIS B VACCINES (1 of 3 - 19+ 3-dose series) 1989 CERVICAL CANCER SCREENING 2000 COLORECTAL SCREENING 2015 Colorectal Cancer Screening 2015 FIT-DNA Q 3 years 2015 FIT/FOBT Q 1 year 2015 Flex Sig/CT Colonography Q 5 years 2015 BREAST CANCER SCREENING 09/21/2015 09/21/20 14, 04/09/2014, 02/20/2014, Additional history exists ZOSTER VACCINE (1 of 2) 2020 INFLUENZA VACCINE (#1) 2024 PNEUMOCOCCAL VACCINE 0-64 YEARS Aged Out No longer eligible based on patient's age to complete this topic Procedures Procedure Name Priority Date/Time Associated Diagnosis Comments MAMMO UNILATERAL DIAG RIGHT Routine 09/21/2014 from Last 3 Months or Most Recently Relevant to Health Maintenance Results * MAMMO UNILATERAL DIAG RIGHT (09/21/2014) Anatomical Region Laterality Modality Breast Right Other Saurav Funes MD MAMMO ORDERAB LES from Last 3 Months or Most Recently Relevant to Health Maintenance Advance Directives For more information, please contact: [phone] * Full Code (Latest Code Status on File) Date Activated Date Inactivated Comments 12/18/2011 7:16 AM 12/18/2011 3:34 PM Care Teams Fermentologist Relationship Specialty Start Date End Date Patrick Locke MD [address] [place] [phone] PCP - General Internal Medicine 12/18/11
--- OUTSIDE RECORDS SUMMARY | 2024-11-22 15:16 | XMS_ITS | Encounter Summary ---
Author Organization [facility] Address [address] [place] [address] Care Team Providers Care Director Global Strategic Publisher Sales Name Role Phone Patrick Locke MD Primary Care Provider [phone] Encounter Details Date Type Department Care Team (Late st Contact Info) Description 10/02/2014 Orders Only [facility] [address] [place] [address] Barbara Funes, Saurav Piper MD [address] [facility] [address] [facility] [address] [place] [phone] Social History Tobacco Use Types Packs/Day Years [...] Comments MAMMO UNILATERAL DIAG RIGHT Routine 09/21/2014 MAMMO UNILATERAL DIAG RIGHT Routine 04/09/2014 MAMMO SCREENING BILAT Routine 02/20/2014 MAMMO SCREENING BILAT Routine 11/13/2012 documented in this encounter Results * MAMMO UNILATERAL DIAG RIGHT (09/21/2014) Anatomical Region Laterality Modality Breast Right Other Saurav Funes MD MAMMO ORDERAB LES * MAMMO UNILATERAL DIAG RIGHT (04/09/2014) Anatomical Region Laterality Modality Breast Right Other Saurav Funes MD MAMMO ORDERAB LES * MAMMO SCREENING BILAT (02/20/2014) Anatomical Region Laterality Modality Breast Bilateral Other Saurav Funes MD MAMMO ORDERAB LES * MAMMO SCREENING BILAT (11/13/2012) Anatomical Region Laterality Modality Breast Bilateral Other Saurav Funes MD MAMMO ORDERAB LES documented in this encounter Visit Diagnoses Not on filedocumented in this encounter Care Teams Director Global Strategic Publisher Sales Relationship Specialty Start Date End Date Patrick Locke MD [address] [place] [phone] PCP - General Internal Medicine 12/18/11 documented as of this encounter
--- OUTSIDE RECORDS SUMMARY | 2024-11-22 15:16 | XMS_ITS | Encounter Summary ---
Author Organization [facility] Address [address] [place] [address] Care Team Providers Care Geophysics Professor Name Role Phone Patrick Locke MD Primary Care Provider [phone] Reason for Visit * Reason Comments Post-op Visit Encounter Details Date Type Department Care Team (Latest Contact Info) Description 12/26/2011 2:30 PM BOTTOM LIQUOR ATTENDANT Clinical Support [facility] ([facility]3] [facility] [address] [facility] [address] [place] [address] Lump or mass in breast [...] on file documented as of this encounter Progress Notes * Yeny Norris MD - 12/28/2011 10:23 AM CST PATIENT: Beatrice Mcmahan : 1970 DATE: 12/28/2011 The patient underwent right NL biopsy. She reports that she is healing well. On exam her incision is healing nicely. There is no evidence of infection. PATHOLOGY: BREAST, RIGHT, EXCISIONAL BIOPSY: - MILD FIBROCYSTIC CHANGES. - FOCAL COLUMNAR CELL CHANGE WITHOUT ATYPIA. - MICROCALCIFICATIONS At this point she should resume annual mammography. She should continue with monthly self breast exams and yearly exam by her physician. Yeny Norris MD, FACS 12/28/2011 10:23 AM OM LIQUOR ATTENDANT * Marina Arellano - 12/26/2011 2:25 PM CST Patient comes in today for f/u on left breast excision done 12/18/11. Incision healing well, some resolving ecchymosis and tenderness. No erythema. Dr Norris saw patient and discussed pathology. OM LIQUOR ATTENDANT documented in this encounter Plan of Treatment Not on file documented as of this encounter Visit Diagnoses Diagnosis Lump or mass in breast- Primary documented in this encounter Care Teams Geophysics Professor Relationship Specialty Start Date End Date Patrick Locke MD [address] [place] [phone] PCP - General Internal Medicine 12/18/11 documented as of this encounter
--- OUTSIDE RECORDS SUMMARY | 2024-11-22 15:16 | XMS_ITS | Encounter Summary ---
Author Organization [facility] Address [address] [place] [address] Care Team Providers Care Lineworker Name Role Phone Patrick Locke MD Primary Care Provider [phone] Encounter Details Date Type Department Care Team (Late st Contact Info) Description 12/28/2011 Abstract [facility] BREAST SURGERY - [place]TN [facility] [address] [place] [address] [place] [address] [place] [address] Social History Tobacco Use Types Packs/Day Years [...] Priority Date/Time Associated Diagnosis Comments MAMMO DIAGNOSTIC BILATERAL W OR WO CAD Routine 11/28/2011 MAMMO SCREEN BILAT W OR WO CAD Routine 11/06/2011 MAMMO DIAGNOSTIC UNI RIGHT W OR WO CAD Routine 02/07/2011 MAMMO DIAGNOSTIC BILATERAL W OR WO CAD Routine 10/06/2010 MAMMO SCREEN BILAT W OR WO CAD Routine 09/19/2010 documented in this encounter Results * MAMMO DIGITAL DIAG BILAT (11/28/2011) Anatomical Region Laterality Modality Breast Bilateral Other Saurav Funes MD MAMMO ORDERAB LES * MAMMO DIGITAL SCREEN BILAT (11/06/2011) Anatomical Region Laterality Modality Breast Bilateral Other Saurav Funes MD MAMMO ORDERAB LES * MAMMO DIGITAL DIAG UNI RIGHT (02/07/2011) Anatomical Region Laterality Modality Breast Right Other Saurav Funes MD MAMMO ORDERAB LES * MAMMO DIGITAL DIAG BILAT (10/06/2010) Anatomical Region Laterality Modality Breast Bilateral Other Saurav Funes MD MAMMO ORDERAB LES * (ABNORMAL) MAMMO DIGITAL SCREEN BILAT (09/19/2010) Anatomical Region Laterality Modality Breast Bilateral Other Saurav Funes MD MAMMO ORDERAB LES documented in this encounter Visit Diagnoses Not on filedocumented in this encounter Care Teams Lineworker Relationship Specialty Start Date End Date Patrick Locke MD [address] [place] [phone] PCP - General Internal Medicine 12/18/11 documented as of this encounter
--- OUTSIDE RECORDS SUMMARY | 2024-11-22 15:16 | XMS_ITS | Encounter Summary ---
Author Organization [facility] Address [address] [place] [address] Care Team Providers Care Mannequin Molder Name Role Phone Patrick Locke MD Primary Care Provider [phone] Reason for Referral * Outpatient Services (Routine) - Closed Specialty Diagnoses / Procedures Referred By Callie roland Referred To Contact Diagnoses Lump or mass in breast Procedures M[place] [address] [place] [address] Referral ID Status Reason Start Date Expiration Date Visits Re quested Visits Authorized [id number] Closed 12/15/2011 12/14/2012 1 1 ULATOR OPERATOR Reason for Visit * Outpatient Services (Routine) - Closed Specialty Diagnoses / Procedures Referred By Callie roland Referred To Contact Diagnoses Lump or mass in breast Procedures MAM[place] [address] [place] [address] Referral ID Status Reason Start Date Expiration Date Visits Re quested Visits Authorized [id number] Closed 12/15/2011 12/14/2012 1 1 Encounter Details Date Type Department Care Team (Latest Contact Info) Description 12/18/2011 7:07 AM GRANULATOR OPERATOR - 12/18/2011 11:59 PM GRANULATOR OPERATOR Hospital Encounter [facility] [address] [place] [address] [place] [address] [place] [address] Discharge Disposition: Home or Self Care Social [...] Name Priority Date/Time Associated Diagnosis Comments MAMMO BREAST SPECIMEN RT Routine 12/18/2011 11:10 AM GRANULATOR OPERATOR Lump or mass in breast documented in this encounter Results * MAMMO BREAST SPECIMEN RT (12/18/2011 11:10 AM GRANULATOR OPERATOR) Anatomical Region Laterality Modality Breast Right Mammography 12/18/2011 11:1 0 AM GRANULATOR OPERATOR Impressions 12/19/2011 10:26 AM GRANULATOR OPERATOR IMPRESSION: Technically successful needle localization. Narrative 12/19/2011 10:26 AM GRANULATOR OPERATOR RIGHT BREAST WIRE LOCALIZATION USING DIGITAL MAMMOGRAPHIC [...] mass in breast documented in this encounter Care Teams Mannequin Molder Relationship Specialty Start Date End Date Patrick Locke MD [address] [place] [phone] PCP - General Internal Medicine 12/18/11 documented as of this encounter
--- OUTSIDE RECORDS SUMMARY | 2024-11-22 15:17 | XMS_ITS | Encounter Summary ---
Author Organization [facility] Address [address] [place] [address] Care Team Providers Care Oval Or Circular Glass Cutter Name Role Phone Unavailable Primary Care Provider Unavailabl e Reason for Referral * Outpatient Services (Routine) - Closed Specialty Diagnoses / Procedures Referred By Contkorin t Referred To Contact Radiology Diagnoses Lump or mass in breast Procedures MAMMO [place] [address] [place] [address] [facility] [address] [place] [address] Referral ID Status Reason Start Date Expiration Date Visits Re quested Visits Authorized [id number] Closed 12/05/2011 12/04/2012 1 1 GE WORKER Reason for Visit * Reason Comments Abnormal Mammogram right breast Encounter Details Date Type Department Care Team (Late st Contact Info) Description 12/05/2011 12:45 PM REFUGE WORKER Office Visit [facility] BREAST SURGERY - [place] [facility] [address] [place] [address] [place] [address] [place] [address] Lump or mass in breast [...] Sign Reading Time Taken Comments Blood Pressure 110/74 12/05/2011 12:56 PM REFUGE WORKER Pulse - - Temperature - - Respiratory Rate - - Oxygen Saturation - - Inhaled Oxygen Concentration - - Weight 81.6 kg (180 lb) 12/05/2011 12:56 PM REFUGE WORKER Height 171.5 cm (5' 7.5 ) 12/05/2011 12:56 PM CS T Body Mass Index 27.78 12/05/2011 12:56 PM REFUGE WORKER documented in this encounter Progress Notes * Yeny Norris MD - 12/05/2011 1:14 PM CST PATIENT: Beatrice Mcmahan : 1970 DATE: 12/05/2011 CHIEF COMPLAINT: abnormal mammogram HISTORY OF PRESENT ILLNESS: Beatrice Mcmahan is a 41 y.o. female here [...] Years of Education: N/A Occupational History ??? [employer] Social History Main Topics ??? Smoking status: [...] finding ASSESSMENT AND PLAN: right NL bx Nuclear Kenna density within the right breast. This is likely normal variation but does representsa change compared to her prior imaging. Ultrasound is negative. We discussed the pros and cons of short-term followup mammogram in 6 months versus biopsy for definitive diagnosis. While I think that either would be fine she does wish to have a histologic confirmation. We will proceed with needle localized biopsy in the near future Yeny Norris MD, FACS cc: MD Saurav Carmichael MD GE WORKER documented in this encounter Plan of Treatment Not on file documented as of this encounter Results * MAMMO NEEDLE LOC EA LESION RT (12/18/2011 8:49 AM REFUGE WORKER) Anatomical Region Laterality Modality Breast Right Ultrasound 12/18/2011 7:16 AM REFUGE WORKER Addenda Addendum by Summer Hampton on 12/22/2011 12:43 PM REFUGE WORKER ADDENDUM: The pathology from the patient's recent right breast needle localization reveals mild fibrocystic changes; focal columnar cell change without atypia; microcalcifications. These findings are benign and concordant. The patient will be informed of the above findings by the office of Dr. Yeny Norris. Impressions 12/19/2011 10:26 AM REFUGE WORKER IMPRESSION: Technically successful needle localization. Narrative 12/19/2011 10:26 AM REFUGE WORKER RIGHT BREAST WIRE LOCALIZATION USING DIGITAL MAMMOGRAPHIC [...] communicated to the surgeon. Procedure Note Summer Hamptno L - 12/19/2011 RIGHT BREAST WIRE LOCALIZATION [...] Diagnosis Lump or mass in breast- Primary Lump or mass in breast documented in this encounter
--- OUTSIDE RECORDS SUMMARY | 2024-11-22 15:17 | XMS_ITS | Encounter Summary ---
Author Organization [facility] Address [address] [place] [address] Care Team Providers Care Embedded Software Test Engineer Name Role Phone Patrick Locke MD Primary Care Provider [phone] Reason for Visit * Auth/Cert (Routine) - Closed Specialty Diagnoses / Procedures Referred By Contac t Referred To Contact General Surgery Diagnoses ABNORMAL MAMMOGRAM Procedures BREAST BIOPSY [facility] [address] [place] [address] Referral ID Status Reason Start Date Expiration Date Visits Re quested Visits Authorized [id number] Closed 12/08/2011 12/07/2012 1 1 Encounter Details Date Type Department Care Team (Latest Contact Info) Description 12/18/2011 6:46 AM FILM CLEANER - 12/18/2011 10:55 AM [facility] Hospital Encounter [facility] [address] [place] [address] [place] [address] [place] [address] Discharge Disposition: Home or Self Care [...] Sign Reading Time Taken Comments Blood Pressure 106/69 12/18/2011 10:34 AM FILM CLEANER Pulse 54 12/18/2011 10:34 AM FILM CLEANER Temperature 36.6 ??C (97.8 ??F) 12/18/2011 9:41 AM CS T Respiratory Rate 19 12/18/2011 10:34 AM FILM CLEANER Oxygen Saturation 100% 12/18/2011 10:34 AM FILM CLEANER Inhaled Oxygen Concentration - - Weight 79.4 kg (175 lb) 12/18/2011 7:24 AM FILM CLEANER Height 172.7 cm (5' 8 ) 12/15/2011 1:45 PM FILM CLEANER Body Mass Index 26.61 12/15/2011 1:45 PM FILM CLEANER documented in this encounter Discharge Instructions * Discharge Instructions* Maryse Fischer MD - 12/18/2011 9:40 AM FILM CLEANER POSTOPERATIVE INSTRUCTIONS AFTER BREAST BIOPSY/LUMPECTOMY 1. It is helpful to use an ice bag intermittently on the area of the biopsy on the day of the surgery. 2. You may be more comfortable wearing a sports bra or other soft supportive bra. 3. No strenuous activity for 4-5 days. 4. Your dressing is a skin glue called Dermabond. It looks like a nail tunisian over your incision. It will flake off in about a week. 5. You may shower tomorrow. 6. It takes 3-5 days to get the pathology report. We will call you with the result and schedule a follow-up appointment. 7. If you have any questions or problems call the office at [phone] CLEANER documented in this encounter Medications at Time [...] abnormal mammogram HISTORY OF PRESENT ILLNESS: Arnoldo Rainlivier is a 41 y.o. female here for [...] Years of Education: N/A Occupational History ??? [employer] Social History Main Topics ??? [...] the near future Maryse Fischer MD, FACS CLEANER documented in this encounter OR Notes * OR Anesthesia - Stl Scanning, Him - 12/23/2011 8:31 PM CST CLEANER * OR Anesthesia - Juan Hare MD - 12/18/2011 11:05 AM CST Phase II Postanesthesia Evaluation Including [facility] Modified Sunshine Score Patient seen and evaluated: RESPIRATORY FUNCTION: Respiration: able to breath and cough freely (12/18/111042) [2=able to breathe and cough freely, 1=dyspnea, [...] Circulation: BP within 20% of preanesthetic level (12/18/111042) [2=BP within 20% of preanesthetic level, 1=BP within 20-49% of preanesthetic level, 0=BP within 50%of preanesthetic level] MENTAL STATUS, NEURO, ACTIVITY: Consciousness: fully awake (12/18/111042) [2=fully awake, 1=arousable on calling, 0=not responding] Activity: able to move 4 extremities voluntarily or on command (12/18/111042) [2=able to move 4 extremities voluntarily or on command, 1=able to move 2 extremities voluntarily or on command, 0=unable to move extremities voluntarily or on command] Ambulation: able to stand up and walk straight, on ordered bedrest, or performing at patient's prior level of function (12/18/11 1043) [2=able to stand up and walk straight, on ordered bedrest, or performing at patient's prior level of function, 1=vertigo when erect, 0=dizziness when supine] TEMPERATURE: Temp: 97.8 ??F (36.6 ??C) (12/18/11 0941) PAIN: Pain Rating: Rest: 3 (12/18/11 1034) Presence of Pain: denies pain/discomfort (12/18/11 1034) Pain: pain free (12/18/11 1043) [2=pain free, 1=pain handled by oral medication, 0=pain requiring parenteral medication] NAUSEA AND VOMITING: Fasting/Feeding: able to drink fluids, ice chips or NPO (12/18/11 1043) [2=able to drink fluids, ice chips or NPO, 1=nauseated, 0=nausea and vomiting] POSTOPERATIVE HYDRATION: Intake/Output Summary (Last 24 hours) at 12/18/11 1106 Last data filed at 12/18/11 0956 Gross per 24 hour Intake 722 ml Output 0 ml Net 722 ml Urine Output: unable to void but comfortable (12/18/11 1043) [2=has voided, adequate urine output per device, or not applicable, 1=unable to void but comfortable, 0=unable to void and uncomfortable] WOUND: Dressing: dry and clean or not applicable (12/18/11 104) [2=dry and clean or not aplicable, 1=wet, marked and not increasing, 0=growing area of wetness] [facility] Modified Sunshine Score: Score: 19 (12/18/11 1043) COMMENTS: No apparent Anesthesia related complications Juan Hare MD 12/18/2011 11:06 AM CLEANER * Operative Report - Maryse Fischer MD [...] Signed: Maryse Fischer MD 12/18/2011, 9:37 AM CLEANER * Evelia-OP - Saige Cyr, RN - 12/18/2011 9:08 AM CST 1% Lidocaine plain injected at operative site with 0.25% SENSORCAINE PLAIN LOCAL INJECTION For total of 25 MLS 0.9% SODIUM CHLORIDE 1000ML FOR IRRIGATION * OR Anesthesia - Juan Hare MD - 12/18/2011 8:06 AM CST Pre-Anesthesia Evaluation - Long Form 12/18/2011 8:06 AM Name: Arnoldo Mcmahan Age: 41 y.o. Sex: female CSN: [id number] Procedure: Procedure(s): BREAST BIOPSY Surgeons/Assistants: Surgeon(s) and [...] solicited and answered. Yes Juan Hare MD CLEANER documented in this encounter Miscellaneous Notes * Scanned Form - Stl Scanning, [facility] - 12/23/2011 8:31 PM CST Electronically signed by Interface, [facility] Stl Portal Developer Incoming at 12/23/2011 8:31 PM FILM CLEANER * Scanned Form - Stl Scanning, [facility] - 12/23/2011 8:31 PM CST Electronically signed by Interface, [facility] Stl Portal Developer Incoming at 12/23/2011 8:31 PM FILM CLEANER * Scanned Form - Stl Scanning, Him - 12/23/2011 8:31 PM CST Electronically signed by Interface, [facility] Stl Portal Developer Incoming at 12/23/2011 8:31 PM FILM CLEANER * Patient Instructions - Stl Scanning, Him - 12/23/2011 8:31 PM CST Electronically signed by Interface, [facility] Stl Portal Developer Incoming at 12/23/2011 8:31 PM FILM CLEANER documented in this encounter Plan of Treatment Not on file documented as of this encounter Procedures Procedure Name Priority Date/Time Associated Diagnosis Comments PATHOLOGY Routine 12/18/2011 9:22 AM FILM CLEANER BREAST BIOPSY 12/18/2011 8:00 AM FILM CLEANER ABNORMAL MAMMOGRAM POC , URINE Routine 12/18/2011 7:15 AM FILM CLEANER documented in this encounter Results * PATHOLOGY (12/18/2011 9:22 AM FILM CLEANER) SURGICAL PATHOLOGY ?[facility] ?[address] ? [place], [place] ??[address] ? Patient: ??ARNOLDO MCMAHAN L ? : ??1970 ? Procedure Date: ??12/18/2011 ? Accession Date: ??12/18/2011 ? Case No: ??[id number] ? Ordering Dr: ??MARYSE FISCHER ? Case type SW is performed by [facility], [address] [place] [address], ? [place], [place] ??[address]; all other case types are performed by [facility] ? [facility], [address] [place] ??[address] ?SURGICAL PATHOLOGY & NON-GYNECOLOGIC CYTOPATHOLOGY REPORT ? [...] Received in a single container labeled Arnoldo Mcmahan, right breast ? biopsy and designated formalin [...] A1-posterior margin ? perpendicularly sectioned; A2 through J32-kmiyaii portion with composites ? in A5-A6, A7-A8, A9-A10, A11-A12, A13-A14, A15-A16, and Q35-nbraewhl margin ? perpendicularly sectioned. ? LUZ/PAIGE 12.18.2011 12:22 pm ? Microscopic: ? The slides are labeled [id number] and Arnoldo Mcmahan. ? The right breast [...] FOR CURTIS JOY M.D.- 12/21/11 04:36 pm [facility] Specimen of unknown material (specimen) 12/18/2011 9:22 AM FILM CLEANER Maryse Fischer MD PATHOLOGY/CYTOLOGY O RDERABLES [facility] CLIA# [id number] [address] [facility] [place] [address] * POC , URINE (12/18/2011 7:15 AM FILM CLEANER) , URINE POC Negative Negative [facility] CLIA LICENSE [id number] [facility] 12/18/2011 7:15 AM FILM CLEANER 12/18/2011 7:15 AM FILM CLEANER Comment:URINE Maryse Fischer MD POINT OF CARE TESTIN [facility]# [id number] [address] [facility] [place] [address] documented in this encounter Visit Diagnoses Not on filedocumented in this encounter Administered Medications Inactive Administered Medications - up to 3 most recent administrations Medication Order MAR Action Action Date Dose Rate Site ceFAZolin (ANCEF) IVPB 2,000 mg 2,000 mg, IV, PRE-PROCEDURE ONCE, 1 dose, Starting on Sun12/18/11 at 0716, Until Sun12/18/11 at 0852, Routine Given 12/18/2011 8:52 AM FILM CLEANER 2,000 mg documented in this encounter Active and Recently Administered Medications Times are shown in FILM CLEANER. Scheduled Medication Order 12/16/2011 12/17/2011 12/18/2011 ceFAZolin (ANCEF) IVPB 2,000 mg (COMPLETED) 2,000 mg, IV, PRE-PROCEDURE ONCE, 1 dose, Starting on Sun12/18/11 at 0716, Until Sun12/18/11 at 0852, Routine 0852 (Given - Provid er: Keven Dubon CRNA) documented in this encounter Care Teams Embedded Software Test Engineer Relationship Specialty Start Date End Date Patrick Locke MD [address] [place] [phone] PCP - General Internal Medicine 12/18/11 documented as of this encounter
--- OUTSIDE RECORDS SUMMARY | 2024-11-22 15:17 | XMS_ITS | Encounter Summary ---
Author Organization [facility] Address [address] [place] [address] Care Team Providers Care Recruiter Account Manager Name Role Phone Unavailable Primary Care Provider Unavailabl e Encounter Details Date Type Department Care Team (Late st Contact Info) Description 12/05/2011 Orders Only [facility] BREAST SURGERY - [place] [facility] [address] [facility] [address] [place] [address] Mamie Donald MD [address] [facility] [address] [place] [address] Social History Tobacco Use Types Packs/Day Years [...]
== END 2024-11-15 11:53 | disposition home or self-care (01) ==
PROVIDERS: Emergency Provider Nurse Practitioner
DX: H66.92 Otitis media, unspecified, left ear (principal); R09.82 Postnasal drip; J32.9 Chronic sinusitis, unspecified
CPT/HCPCS: 87081; 87880; 99213; G0463

== ENCOUNTER 2025-02-16 14:49 | Outpatient (CLI) | payer OTHER, SELFPAY ==
--- NOTE | ~2025-02-16 | MM_ITS ---
EXAMINATION: MM screening madeline BI w samy HISTORY: Screening mammogram TECHNIQUE: Craniocaudal and mediolateral oblique 3-D tomosynthesis images were obtained and synthetic 2-D images were generated. CAD analysis was submitted and interpreted. COMPARISON: 01/01/2023, 07/10/2019 BREAST PARENCHYMAL COMPOSITION:Not Dense. The breasts are almost entirely fatty FINDINGS: No suspicious mass, calcification, or architectural distortion are identified in either tessa ast to suggest malignancy. There has been no suspicious interval change. IMPRESSION: No mammographic evidence of malignancy. Recommend routine screening mammography in one year. BI-RADS Category 1: Negative Reviewed, dictated and finalized at location .
== END 2025-02-16 14:50 | disposition home or self-care (01) ==
LOC: MICIMG 14:50
PROVIDERS: PCP Obstetrics & Gynecology; Visit Provider Obstetrics & Gynecology
DX: Z12.31 Encounter for screening mammogram for malignant neoplasm of breast (principal)
CPT/HCPCS: 77063; 77067